=== PATIENT | female | born 1995 | race Caucasian/White ===

== ENCOUNTER → 2017-05-15 10:41 | Outpatient (CLI) | payer OTHER, SELFPAY ==
[2017-05-15 14:48] LABS: Group B Strep DNA By PCR Negative (Negative); Internal Control PASS; Probe Check PASS; Specimen Processing Control PASS
== END ==
PROVIDERS: Visit Provider Obstetrics & Gynecology
DX: Z36.85 Encounter for antenatal screening for Streptococcus B (principal)
CPT/HCPCS: 87081; 87653

== ENCOUNTER 2017-06-10 05:30 | Inpatient (IN) | payer OTHER, SELFPAY ==
[2017-06-10 03:00] VITALS: BMI 35.1
[2017-06-10] MEDS: Lactated Ringers 1,000 ML 50 ML IV (06:00)
[2017-06-10 06:31] LABS: Hematocrit 39.4 % (37-47); Hemoglobin 13.2 g/dl (12.0-15.0); Mean Corp Hgb Conc 33.5 g/gl (32-36); Mean Corpuscular Hgb 28.4 pg (27.0-32.0); Mean Corpuscular Volume 84.7 fL (81-99); Mean Platelet Vol. 11.3 fl (6.2-12.0); Platelet Count 179 K/mm3 (150-450); RBC Distribution Width CV 13.1 % (11.6-14.6); RBC Distribution Width SD 39.7 fl (35.1-43.9); Red Blood Count 4.65 M/mm3 (4.2-5.4); White Blood Count 24.8 K/mm3 (4.4-11.0)
[2017-06-10 06:32] LABS: Scan Indicated on CBC? Y/N NO
--- NOTE | 2017-06-10 08:21 | PCM.PN.BLA ---
Progress Note LABOR PROGRESS NOTE plan and has declined cervix checks and AROM . Stated to RN that she is having rectal pressure and requesting cervix check now. Discussed AROM AVSS CX: /-2 BBOW. AROM Light mec EFM 130-140s avg variability accels. Periods of FHR in 150s Category I tracing UCs irreg with coupling and spacing, q 2-5 mins. A/P: Term IUP labor. in active phase now. Continue labor after AROM. Declines epidural
[2017-06-10] MEDS: Oxytocin 10 UNITS/ML Vial IM (09:43)
[2017-06-10] MEDS: Acetaminophen 500 MG Tablet 1000 MG PO ×2 (12:35→22:33)
[2017-06-10 16:30] VITALS: BP 117/69; PULSE 94; RESP 18; TEMP 36.7
[2017-06-10] MEDS: Ibuprofen 600 MG Tablet PO (19:37)
[2017-06-10 22:00] VITALS: BP 121/64; PULSE 102; RESP 16; TEMP 36.6
[2017-06-11 02:00] VITALS: PULSE 99; RESP 18
[2017-06-11] MEDS: Ibuprofen 600 MG Tablet PO ×2 (04:33→17:57)
--- NOTE | 2017-06-11 05:13 | PCM.DCVAG ---
Discharge Diet: No Restrictions Discharge Activity: May Shower, May Take a Tub Bath May resume sexual activity in: 4-6 weeks Additional Activity Instructions:: Nothing in the vagina for 4-6 weeks. You may return to work/school in 6 weeks. Additional Instructions: If you experience any of the following, contact your healthcare provider. Bleeding that soaks a pad every hour for 2 hours Fever 100.4 or higher Unrelieved abdominal pain Problems urinating (including inability to urinate or burning while urinating). Visual changes Severe headache Flu-like symptoms Pain or redness in one of both of your breasts Pain, warmth, tenderness or swelling in your legs, especially the calf area Frequent nausea and vomiting Symptoms of depression or anxiety If you experience any of the following, call 911 or go to the nearest Emergency Room. Chest pain Problems breathing Seizure activity Partial or complete paralysis of a body part, slurred speech, weakness or drooping of the face, or a sudden inability to walk or hold your balance Allergies/Adverse Reactions: Allergies No Known Allergies Allergy (Verified 06/10/17 03:02) Medications to take at Discharge Prenatabs FA 1 tab PO DAILY 06/10/17 Orders to be completed after discharge: Electric breast pump Time Frame: 1 Year, Location: None Selected Please Follow Up With: Ingris Camp MD - [phone] When: Call to make an appointment with your doctor in 6 weeks. Primary Care Physician: Care Physician,No Primary [Primary Care Provider] - Proposed Discharge Date: 06/12/17
--- NOTE | 2017-06-11 05:15 | DCINST_ITS ---
Discharge Diet: No Restrictions Discharge Activity: May Shower, May Take a Tub Bath May resume sexual activity in: 4-6 weeks Additional Activity Instructions:: Nothing in the vagina for 4-6 weeks. You may return to work/school in 6 weeks. Additional Instructions: If you experience any of the following, contact your healthcare provider. * Bleeding that soaks a pad every hour for 2 hours * Fever 100.4 or higher * Unrelieved abdominal pain * Problems urinating (including inability to urinate or burning while urinating) . * Visual changes * Severe headache * Flu-like symptoms * Pain or redness in one of both of your breasts * Pain, warmth, tenderness or swelling in your legs, especially the calf area * Frequent nausea and vomiting * Symptoms of depression or anxiety If you experience any of the following, call 911 or go to the nearest Emergency Room. * Chest pain * Problems breathing * Seizure activity * Partial or complete paralysis of a body part, slurred speech, weakness or drooping of the face, or a sudden inability to walk or hold your balance Allergies/Adverse Reactions: Allergies No Known Allergies Allergy (Verified 06/10/17 03:02) Medications to take at Discharge Prenatabs FA 1 tab PO DAILY 06/10/17 Orders to be completed after discharge: Electric breast pump Time Frame: 1 Year, Location: None Selected Please Follow Up With: Ingris Camp MD - [phone] When: Call to make an appointment with your doctor in 6 weeks. Primary Care Physician: Care Physician,No Primary [Primary Care Provider] - Proposed Discharge Date: 06/12/17
--- NOTE | 2017-06-11 05:17 | PCM.OB.VAG ---
Vaginal Delivery Maternal Presentation: Active Labor 39 4/7 wk presents in labor, IBOW Amniotic Membrane Rupture Type: Artificial Amniotic Fluid Description: Lightly stained meconium Final ARIANA: 06/13/17 Gestational age: 39 Weeks and 4 Days doctor who attended delivery (if requested by OB): Meghan Watters Date of Procedure: 06/10/17 Pre-Operative Diagnosis: 39 4/7 wk labor Post-Operative Diagnosis: 39 4/7 wk labor, delivered Surgery/ Procedure Performed: Spontaneous Vaginal Delivery Type of Anesthesia: None - nitrous oxide Description of Procedure: of a jackson viable female over intact perineum to laceration. Head delivered MARY. No nuchal cord. Shoulders delivered easily. Baby delivered onto bed, then bulb suctioned as began to cry. Meconium stained fluid noted at amniotomy and Dr. Watters and Respiratory Therapist present for delivery. Infant to maternal abdomen for drying, stimulation then. Routine venous cord gas obtained. PP exam: 2nd deg vaginal laceration at introitus to L side, bleeding. Avulsion laceration at L anterior labia majora (hemostatic). 1% lidocaine local infused at location to be repaired. Laceration repaired to hemostatic, intact with 3-0 vicryl. no other repair. Placenta delivered by spont expulsion. ring forceps used to tease trailing membranes from vagina. Pt and tolerated delivery well. to recovery. stable [employer] counts correct x two. Presentation: Vertex, MARY Placental Delivery Description: Spontaneous Placenta Disposition: [facility] Cord Vessel Description: 3 Vessels Cord Gases drawn per routine: VBG Cord Entanglement: None Estimated Blood Loss: 350 Infant A gender: Female (1 minute): 8 (5 minute): 9 Episiotomy Description: None Laceration: Midline, Vaginal Extension/lac, 2nd degree Medications given after delivery: - - IM pitocin 10 U x one. (IV infiltrated / site lost ) Complications: None
[2017-06-11 08:10] VITALS: BP 111/53; PULSE 74
--- NOTE | 2017-06-11 08:11 | PCM.PN.OB ---
Subjective: PPD#1 Doing well. Minimal pain. breast feeding. Baby 8# 6 oz no concerns voiced. Tired and hoping to rest/nap more today. - Physical Exam General: Alert, Oriented x3, Cooperative, No apparent distress HEENT: Atraumatic Neck: Supple Abdomen: Soft - Fundus firm NT at 1-2 cm inferior to umbilicus Neurological: Cranial nerves II-XII grossly intact Psych/Mental Status: Normal Affect Vital Signs Temp Pulse Resp BP 97.8 F 99 18 121/64 H 06/10/17 22:00 06/11/17 02:00 06/11/17 02:00 06/10/17 22:00 Oxygen Delivery Method Room Air Weight: 84.368 kg Body Mass Index (BMI) 35.1 Intake and Output for Last 24 Hours 06/09/17 06/10/17 06/11/17 23:59 23:59 23:59 Intake Total 1000 / 1000 Output Total 1100 / 1100 Balance -100 / -100 Assessment/Plan PPD#1 Stable pp. Continue care, anticipate D/C home tomorrow.
[2017-06-11 08:20] VITALS: RESP 16; TEMP 36.4; O2SAT 97
[2017-06-11] MEDS: Prenatal Vits Tablet 1 TABLET PO (09:53)
[2017-06-11] MEDS: Acetaminophen 500 MG Tablet 1000 MG PO (13:31)
[2017-06-11 14:45] VITALS: BP 120/77; PULSE 88; RESP 16; TEMP 36.5; O2SAT 97
[2017-06-11 19:31] VITALS: BP 108/53; PULSE 77; RESP 16; TEMP 36.9
[2017-06-12] MEDS: Acetaminophen 500 MG Tablet 1000 MG PO ×2 (01:12→11:40)
[2017-06-12 02:10] VITALS: BP 109/59; PULSE 88; RESP 18; TEMP 36.1
--- NOTE | 2017-06-12 08:15 | PCM.PN.OB ---
Subjective: PPD#2 doing well. - Physical Exam General: Oriented x3 - resting, Cooperative, No apparent distress HEENT: Atraumatic Neck: Supple Abdomen: Soft - Fundus firm NT at approx umbilicus -1 cm. Off to R side Psych/Mental Status: Normal Affect Vital Signs Temp Pulse Resp BP Pulse Ox 96.9 F L 88 18 109/59 L 97 06/12/17 02:10 06/12/17 02:10 06/12/17 02:10 06/12/17 02:10 06/11/17 14:45 Oxygen Delivery Method Room Air Weight: 84.368 kg Body Mass Index (BMI) 35.1 Intake and Output for Last 24 Hours 06/10/17 06/11/17 06/12/17 23:59 23:59 23:59 Intake Total 1000 / 1000 Output Total 1100 / 1100 Balance -100 / -100 Assessment/Plan PPD#2 Stable pp. D/C home
[2017-06-12 08:16] VITALS: BP 105/55; PULSE 71; RESP 16; TEMP 36.3
[2017-06-12] MEDS: Prenatal Vits Tablet 1 TABLET PO (11:39)
[2017-06-12 14:00] VITALS: BP 105/58; PULSE 90; RESP 16; TEMP 36.8
== END 2017-06-12 14:00 | disposition home or self-care (01) | DRG 775 ==
LOC: WPOUT 05:41
PROVIDERS: Admitting Provider Obstetrics & Gynecology; Family Provider Family Medicine; PCP Family Medicine; Visit Provider Obstetrics & Gynecology
DX: O77.0 Labor and delivery complicated by meconium in amniotic fluid (principal); O70.1 Second degree perineal laceration during delivery; Z37.0 Single live birth; Z3A.39 39 weeks gestation of pregnancy
CPT/HCPCS: 59025; 59050; 85027; 86850; 86900; 99218; J7120; G0378

== ENCOUNTER 2017-06-16 13:00 | Outpatient (CLI) | payer OTHER, SELFPAY | END 2017-06-16 14:00 | disposition home or self-care (01) | LOC: WPOUT 13:09 → WP 13:09 | PROVIDERS: Family Provider Family Medicine; PCP Family Medicine; Visit Provider Obstetrics & Gynecology | DX: R63.3 Feeding difficulties (principal) | CPT/HCPCS: 96152 ==

== ENCOUNTER 2017-07-13 22:02 | Emergency (ER) | payer OTHER, SELFPAY ==
[2017-07-13 22:03] VITALS: BP 118/75; PULSE 120; RESP 24; TEMP 36.6; O2SAT 98; BMI 29.5
--- NOTE | 2017-07-13 22:21 | NURSING ---
[facility] LUBRICATOR CALLED FOR EKG, NO OLD EKG'S IN MUSE
--- NOTE | 2017-07-13 23:15 | ED.VISSUMM ---
- ER Visit Summary Date of Service: 07/13/17 Chief Complaint: [] Left inner back pain History of Present Illness: The patient is a 22 F patient having left-sided and her thoracic back pain since yesterday. She woke with it it is a continuous sharp nerve pain that radiates up into her neck. Current severity is moderate. Worsened by nothing. Relieved by nothing. She got a massage today and she thinks that made it worse. She denies any other associated symptoms. She does not have any shortness of breath but the pain sometimes takes her breath away. Waxes and wanes. She had this pain 2 weeks ago for 3 days and it went away with stretching and resting. She has been using Tylenol with her last dose at 6 PM. She is breast-feeding. She had a vaginal delivery at the end of May without complications. Denies any other PE risk factors. Physical Examination: Vital signs reviewed General: Well-nourished well-developed Head: Normocephalic atraumatic Eyes: Pupils equal round and reactive to light extraocular movements intact ENT: TMs clear no hemotympanum no trauma Neck: Nontender full range of motion Cardiovascular: Regular rate rhythm no murmurs normal S1-S2 Respiratory: No distress clear to auscultation bilaterally chest nontender Abdomen: Soft nontender nondistended normal bowel sounds no masses Back: Redness and midthoracic left paraspinals just medial to the scapula. No swelling or deformity. No CVA tenderness Extremities: Nontender active range of motion ?4 extremities no trauma Skin: Normal color no trauma Neuro alert oriented cranial nerves II through XII intact normal strength sensation reflexes Test Results: [] Emergency Department Course and Treatment: [] EKG shows sinus rhythm at 121 without ischemia. The patient's pulse ox is 98%. She does have a tachycardia but she feels it is from the pain. I discussed doing lab work and imaging and PE rule out with her and she declined. At this time this is very much reproducible musculoskeletal back pain. She is given a shot of Toradol and morphine and will rest and ice and do gentle stretching and try not to lift too much. I do not feel she needs other imaging. I Have a low suspicion for acute coronary syndrome. PEs in the differential but I still have a low suspicion. Treatment Plan: [] Disposition: [] Impression: [] Left-sided thoracic back pain This note was generated with Dragon dictation software. It may contain incorrect words, spelling, and punctuation that were not noted in review of the chart prior to signing ED Disposition - Plan for ED Patient: Chief Complaint: Shortness of Breath Referrals: Sendy Ferraro DO [Primary Care Provider] -
--- NOTE | 2017-07-13 23:20 | ED.DEP ---
ED Disposition - Plan for ED Patient: Disposition: Home or Assisted Living Chief Complaint: Shortness of Breath Instructions: Relieving Back Pain Prescriptions: Oxycodone HCl/Acetaminophen [Percocet 5/325] 1 tab PO Q6H PRN PRN 3 Days #12 tab PRN Reason: Pain Referrals: Sendy Ferraro DO [Primary Care Provider] -
[2017-07-13] MEDS: Ketorolac 60 MG/2 ML Vial IM (23:24)
[2017-07-13] MEDS: Morphine 4 MG/ML Syringe IM (23:24)
[2017-07-14 00:07] VITALS: BP 113/73; PULSE 95; RESP 18; O2SAT 97
== END 2017-07-14 00:08 | disposition home or self-care (01) ==
LOC: ED 23:30
PROVIDERS: Emergency Provider Emergency Medicine; Family Provider Family Medicine; PCP Family Medicine
DX: M54.6 Pain in thoracic spine (principal); R00.0 Tachycardia, unspecified
CPT/HCPCS: 96372; 99282

== ENCOUNTER 2017-07-15 00:06 | Emergency (ER) | payer OTHER, SELFPAY ==
[2017-07-15 00:07] VITALS: BP 146/51; PULSE 124; RESP 24; TEMP 37.7; O2SAT 99; BMI 30.2
--- NOTE | 2017-07-15 00:19 | EKG12_ITS ---
Test Reason : Blood Pressure : / mmHG Vent. Rate : 121 BPM Atrial Rate : 121 BPM P-R Int : 142 ms QRS Dur : 076 ms QT Int : 316 ms P-R-T Axes : 027 042 -03 degrees QTc Int : 448 ms Sinus tachycardia Nonspecific ST abnormality Abnormal ECG Confirmed by DELILAH RODRIGUEZ, JUANIS ([id number]), school photograph editor DIANA CERNA ([id number]) on 07/17/2017 1:00:03 PM Referred By: Ingris Camp Confirmed By:JUANIS MAZARIEGOS MD
--- NOTE | 2017-07-15 00:20 | CT_ITS ---
STUDY: CTA CHEST REASON FOR EXAM: Female, 22 years old. Left-sided thoracic back pain x2 days, shortness of breath today RADIATION DOSAGE (If Supplied By Facility): CTDIvol = ( 8.53 ) mGy, DLP = ( 449.71 ) mGycm TECHNIQUE: The examination was performed with the intravenous administration of 75 ml of Isovue 370 contrast material. Post-processing of the angiographic images was performed, with multiplanar reformation and 3D reconstruction. Individualized dose optimization techniques were used for this CT. COMPARISON: None. FINDINGS: Normal enhancement of the main pulmonary artery and right and left pulmonary arteries. Normal enhancement of the bilateral peripheral pulmonary arteries. There is no demonstrated pulmonary embolism. Normal thoracic aorta and visualized great vessels. There is no demonstrated aortic dissection. Normal heart . Mild pericardial thickening with fat stranding. Asymmetry of the anterior chest wall, more pronounced along the left pectoral muscle. An inflammatory process is not excluded. Normal mediastinum. Normal hilar regions. Normal visualized trachea and bronchi. The lungs are under expanded. There are atelectatic changes and pleural thickening along the basilar right middle and lower lobe. Small left pleural effusion. Adjacent mild compression of parenchyma and a possible mild acute airspace disease.. Normal chest wall structures. Normal osseous structures. Normal visualized upper abdomen. CT/CTA Chest W/WO Contrast IMPRESSION: No demonstrated pulmonary embolism, aneurysm, leak or arterial dissection. Small left pleural effusion. Bibasilar atelectasis, questionable mild airspace disease in the left lower lobe. Pericardial thickening. This may be an inflammatory process. Correlation advised. Asymmetry of the pectoral musculature, more pronounced left, somewhat indistinct, inflammatory process is not excluded. No abscess or collection detected. Electronically Signed: Dee Pink MD at 2:05 EDT , Service support ,
--- NOTE | 2017-07-15 00:23 | NURSING ---
NO OLD EKG'S IN MUSE
[2017-07-15] MEDS: Ketorolac 30 MG/ML Syringe IV (00:34)
[2017-07-15] MEDS: 0.9% Normal Saline 1,000 ML 1000 ML IV (00:34)
[2017-07-15] MEDS: Morphine 4 MG/ML Syringe 8 MG IV (00:38)
[2017-07-15 00:43] LABS: Absolute Lymphocyte Count 1.38 X10^3/ul (0.83-4.51); Absolute Neutrophil Count 11.5 X10^3/uL (2.0-7.7); Basophil# 0.01 X10^3/uL; Basophil% 0.1 % (0-1); Eosinophil# 0.08 X10^3/uL; Eosinophils% 0.5 % (0-5); Hematocrit 40.9 % (37-47); Hemoglobin 13.3 g/dl (12.0-15.0); Lymphocyte # 1.38 X10^3/ul (4.0); Lymphocyte % 9.4 % (19-41); Mean Corp Hgb Conc 32.5 g/gl (32-36); Mean Corpuscular Hgb 27.5 pg (27.0-32.0); Mean Corpuscular Volume 84.7 fL (81-99); Mean Platelet Vol. 9.6 fl (6.2-12.0); Monocyte% 12.2 % (0-10); Neutrophil # 11.45 X10^3/uL (2.7-7.7); Neutrophil % 77.7 % (47-70); Platelet Count 246 K/mm3 (150-450); RBC Distribution Width CV 14.1 % (11.6-14.6); RBC Distribution Width SD 43.9 fl (35.1-43.9); Red Blood Count 4.83 M/mm3 (4.2-5.4); White Blood Count 14.7 K/mm3 (4.4-11.0)
[2017-07-15 00:44] LABS: Differential Indicated SCAN CRITERIA MET; POSITIVE COUNT NO; POSITIVE DIFFERENTIAL YES; POSITIVE MORPHOLOGY YES
[2017-07-15 00:50] VITALS: O2SAT 100
[2017-07-15 00:52] LABS: Anion Gap 8 (5-15); BUN 21 mg/dL (7-18); BUN/Creat Ratio 19.4 RATIO (10-20); Calcium,Total 8.6 mg/dL (8.5-10.1); Chloride 104 mmol/L (98-107); Creatinine, Serum 1.08 mg/dL (0.55-1.02); EST Glomerular Filtration Rate 68 mL/min (>60); Est Glom Filt Rate - Afr Amer 82 mL/min (>60); Estimated Creatinine Clearance 62.18 ml/min; Glucose 93 mg/dL (74-106); Potassium 3.9 mmol/L (3.5-5.1); Sodium Level 138 mmol/L (136-145)
[2017-07-15] MEDS: HYDROmorphone 1 MG/ML Syringe IV (01:15)
[2017-07-15 02:12] VITALS: BP 115/68; PULSE 100; RESP 18; O2SAT 99
--- NOTE | 2017-07-15 02:16 | ED.VISSUMM ---
- ER Visit Summary Date of Service: 07/15/17 Chief Complaint: [] Back pain History of Present Illness: The patient is a 22 F complaining of back pain and shortness of breath from the pain. It hurts when she takes a deep breath. No cough. No fevers or chest pain. She was seen by myself yesterday and given Toradol morphine with moderate relief of her symptoms. She did not take Percocet as she is breast-feeding. She had vaginal delivery at the end of May without problems. Physical Examination: Vital signs reviewed General: Well-nourished well-developed Head: Normocephalic atraumatic Eyes: Pupils equal round and reactive to light extraocular movements intact ENT: TMs clear no hemotympanum no trauma Neck: Nontender full range of motion Cardiovascular: Regular cardia with normal no murmurs normal S1-S2 Respiratory: No distress clear to auscultation bilaterally chest nontender Abdomen: Soft nontender nondistended normal bowel sounds no masses Back: Tenderness between her left scapula and spinal midthoracic no CVA tenderness Extremities: Nontender active range of motion ?4 extremities no trauma Skin: Normal color no trauma Neuro alert oriented cranial nerves II through XII intact normal strength sensation reflexes Test Results: [] CBC normal except white count of 14.7. Chemistries normal except BUN 21. Troponin negative. EKG shows sinus at a rate of [address] of the chest shows no PE. Positive left lower lobe pneumonia with pleural effusion. Patient given IV fluids, morphine, Dilaudid, Toradol with complete resolution of pain. Given levofloxacin. At this time I feel she can be discharged with levofloxacin. She has Percocet at home. She is going to take this. She will follow-up as an outpatient. I do not feel she needs admitted. Emergency Department Course and Treatment: [] Treatment Plan: [] Disposition: [] Impression: [] Left lower lobe pneumonia with back pain Left lower pleural effusion secondary to pneumonia This note was generated with All[employer] dictation software. It may contain incorrect words, spelling, and punctuation that were not noted in review of the chart prior to signing ED Disposition - Plan for ED Patient: Chief Complaint: Back Referrals: Sendy Ferraro DO [Primary Care Provider] -
[2017-07-15 02:56] VITALS: BP 115/68; PULSE 92; RESP 21; O2SAT 97
[2017-07-15] MEDS: HYDROcodone Bitartrate/Apap 5/325 Tablet PO (04:09)
== END 2017-07-15 04:10 | disposition home or self-care (01) ==
PROVIDERS: Emergency Provider Emergency Medicine; Family Provider Family Medicine; PCP Family Medicine
DX: J18.1 Lobar pneumonia, unspecified organism (principal); M54.9 Dorsalgia, unspecified; J90 Pleural effusion, not elsewhere classified
CPT/HCPCS: 71275; 80048; 84484; 85025; 93005; 96361; 96365; 96366; 96374; 96375; 99284; J7030; Q9967; A4216

== ENCOUNTER 2017-07-17 21:34 | Inpatient (IN) | payer OTHER, SELFPAY ==
[2017-07-17 21:36] VITALS: BP 137/57; PULSE 125; RESP 20; TEMP 37.1; O2SAT 96; BMI 31.8
[2017-07-17 21:50] VITALS: BP 116/80; PULSE 111; RESP 22; O2SAT 97
[2017-07-17 21:51] VITALS: O2SAT 98
--- NOTE | 2017-07-17 22:00 | ED.VISSUMM ---
- ER Visit Summary Date of Service: 07/17/17 Chief Complaint: Fever, body aches, headache History of Present Illness: The patient is a 22 F seen in the ER twice this week with back pain. Patient was diagnosed with left lower lobe pneumonia and a pleural effusion on a CTA of the chest on the fourth. Patient is currently on Levaquin. Patient reports fever to 101 tonight with body aches and headache, the improved after taking a nap. Mom is with the patient stating she was not sure if this was still normal with pneumonia. Mom also states that her lips look purple when she got up from a nap. Physical Examination: Blood pressure is 137/57, temperature 98.8, heart rate 125, respiratory rate 20, pulse ox 96% on room air. Patient sitting upright in bed no acute distress. She speaking full sentences. Heart is tachycardic and regular. Lung sounds are slightly diminished left base. Overall good air movement throughout. There is no wheezing appreciated. Abdomen is soft nontender. Back examination was mild tenderness in the left thoracic paraspinal muscles. No overlying skin changes are noted. Test Results: Two-view chest x-ray reveals lower lung airspace disease. Bilateral effusions are present. Mild cardiomegaly. CBC was normal white count with hemoglobin 11.5. She is 78% neutrophils. Chemistry studies are significant only for glucose of 110. Lactate is normal. Blood cultures were drawn. Emergency Department Course and Treatment: While we are waiting laboratory evaluation, I did further review the workup from 2 days ago. The report for the CTA chest does comment on a small possible acute airspace disease in the left base with left pleural effusion. They also commented that the pericardial sac was thickened and had stranding. In light of this, EKG is obtained tonight and reveals sinus rhythm at 78 bpm. T-wave in V1, V2, and V3 are flipped when compared to prior study from July 15. Troponin is less than 0.02. BNP is 58. Her sed rate is 32 and CRP is 131. Patient was discussed Dr. Guerrero and hospitalist. Patient will be admitted for further treatment and echocardiogram. Treatment Plan: [] Disposition: Admit Impression: 1. Pneumonia 2. Bilateral pleural effusions 3. Pericardial thickening This note was generated with TrialReachation software. It may contain incorrect words, spelling, and punctuation that were not noted in review of the chart prior to signing ED Disposition - Plan for ED Patient: Chief Complaint: Fever Referrals: Sendy Ferraro DO [Primary Care Provider] -
--- NOTE | 2017-07-17 22:11 | RAD_ITS ---
STUDY: X-RAY CHEST REASON FOR EXAM: Female, 22 years old. Fever TECHNIQUE: Frontal and lateral views of the chest. COMPARISON: None. FINDINGS: The lungs are expanded. Lower lung opacities. Small effusions. There is no demonstrated pleural abnormality. There is mild cardiac enlargement. Normal mediastinum and tk. Normal visualized pulmonary arteries. Normal visualized aortic arch and descending thoracic aorta. Normal visualized thoracic spine. Normal visualized ribs, clavicles, and shoulders. There is no demonstrated abnormality of the visualized soft tissue structures of the upper abdomen. RAD/Chest PA and Lateral IMPRESSION: Lower lung airspace disease. Bilateral effusion. Mild cardiomegaly. Electronically Signed: Jose Reed DO at 22:56 EDT , Service support ,
[2017-07-17 22:20] VITALS: TEMP 36.9
[2017-07-17 22:20] LABS: Absolute Lymphocyte Count 0.99 X10^3/ul (0.83-4.51); Absolute Neutrophil Count 8.3 X10^3/uL (2.0-7.7); Basophil# 0.02 X10^3/uL; Basophil% 0.2 % (0-1); Eosinophil# 0.22 X10^3/uL; Eosinophils% 2.1 % (0-5); Hematocrit 35.8 % (37-47); Hemoglobin 11.5 g/dl (12.0-15.0); Lymphocyte # 0.99 X10^3/ul (4.0); Lymphocyte % 9.4 % (19-41); Mean Corp Hgb Conc 32.1 g/gl (32-36); Mean Corpuscular Hgb 27.3 pg (27.0-32.0); Mean Corpuscular Volume 84.8 fL (81-99); Mean Platelet Vol. 9.6 fl (6.2-12.0); Monocyte# 1.02 X10^3/uL; Monocyte% 9.7 % (0-10); Neutrophil # 8.25 X10^3/uL (2.7-7.7); Neutrophil % 78.4 % (47-70); Platelet Count 262 K/mm3 (150-450); RBC Distribution Width CV 14.1 % (11.6-14.6); Red Blood Count 4.22 M/mm3 (4.2-5.4); White Blood Count 10.5 K/mm3 (4.4-11.0)
[2017-07-17 22:21] LABS: POSITIVE COUNT NO; POSITIVE DIFFERENTIAL NO; POSITIVE MORPHOLOGY NO
[2017-07-17] MEDS: 0.9% Normal Saline 1,000 ML 150 ML IV (22:33)
[2017-07-17 22:44] LABS: Anion Gap 9 (5-15); BUN 14 mg/dL (7-18); BUN/Creat Ratio 12.7 RATIO (10-20); Calcium,Total 8.4 mg/dL (8.5-10.1); Chloride 104 mmol/L (98-107); EST Glomerular Filtration Rate 66 mL/min (>60); Est Glom Filt Rate - Afr Amer 80 mL/min (>60); Estimated Creatinine Clearance 61.05 ml/min; Glucose 115 mg/dL (74-106); Potassium 3.7 mmol/L (3.5-5.1); Sodium Level 142 mmol/L (136-145)
[2017-07-17 23:19] VITALS: BP 111/74; PULSE 94; RESP 20; O2SAT 98
--- NOTE | 2017-07-17 23:26 | EKG12_ITS ---
Test Reason : Blood Pressure : / mmHG Vent. Rate : 120 BPM Atrial Rate : 120 BPM P-R Int : 148 ms QRS Dur : 068 ms QT Int : 312 ms P-R-T Axes : 035 041 017 degrees QTc Int : 440 ms Sinus tachycardia Otherwise normal ECG Confirmed by DELILAH RODRIGUEZ, JUANIS ([id number]), visual effects editor DIANA CERNA ([id number]) on 07/20/2017 3:44:31 PM Referred By: Ingris Camp Confirmed By:JUANIS MAZARIEGOS MD
--- NOTE | 2017-07-17 23:37 | EKG12_ITS ---
Test Reason : FEVER Blood Pressure : / mmHG Vent. Rate : 078 BPM Atrial Rate : 078 BPM P-R Int : 176 ms QRS Dur : 080 ms QT Int : 386 ms P-R-T Axes : 019 016 -01 degrees QTc Int : 440 ms Normal sinus rhythm Normal ECG Confirmed by DELILAH RODRIGUEZ, JUANIS ([id number]), primer expeditor and drier DIANA CERNA ([id number]) on 07/21/2017 8:46:39 AM Referred By: Ingris Camp Confirmed By:JUANIS MAZARIEGOS MD
[2017-07-18] VITALS (16 sets, daily range): BP systolic 98–150; BP diastolic 56–104; PULSE 64–98; RESP 16–24; TEMP 36.6–37; O2SAT 95–99; BMI 31.1
[2017-07-18 00:01] LABS: Erythrocyte Sedimentation Rate 32 mm/hr (0-20)
[2017-07-18 00:34] LABS: BNP,B-Type NATRIURETIC PEPTIDE 58.8 pg/mL (0-100)
--- NOTE | 2017-07-18 01:18 | PCM.HP.STD ---
Problem List (1) Acute myocarditis Status: Suspected (2) cardiomyopathy Status: Suspected (3) Bilateral pleural effusion Status: Acute (4) Acute CHF Status: Acute History of Present Illness Date of Admission: 07/18/17 Chief Complaint: Fever, headache, shortness of breath and left shoulder pain. The patient is a 22 year old F with no significant past medical history presented to the emergency room because of multiple symptoms including fever, headache and shortness of breath as well as left shoulder pain. She is 5 weeks , delivered a baby on June 09, 2018. After delivery, she stated that she was about back to her baseline health status. 2 weeks , she started having left shoulder pain, it is on the medial aspect of the left shoulder blade, sharp and sometimes dull aching pain, 5-6 out of 10 in severity, intermittent, aggravated by taking a deep breath, no relieving factors and that pain continued for almost 2 weeks. 6 days ago, she started having exertional shortness of breath and she continues to have intermittent left shoulder blade pain, associated with orthopnea, no PND and she has been having intermittent fever. For this left shoulder blade few days ago, she went to urgent care for this left shoulder blade pain and she was reassured and she was discharged home. She came to the emergency department on July 13, 2012 for the same symptoms and she was discharged home on Percocet as needed for pain. She came back 2 days later without improvement of her symptoms. At that time, CTA chest done and revealed questionable left lower lobe infiltrate and she was started on Levaquin. That CTA chest showed no evidence of PE or dissection. The patient has been on Levaquin for 3 days and she mentioned she still having this pain at the left shoulder blade as well as shortness of breath on exertion and orthopnea. Today, she has spiked a fever at home of 101. She denied sore throat, nasal or sinus congestion. She denied cough or sputum production. She denied abdominal pain, nausea vomiting. She denies urinary symptoms. She denied constipation or diarrhea. In the emergency room, she was tachycardic, afebrile, blood pressure was stable and she was tachypneic with pulse ox of 97% on 2 L. Her routine blood work was remarkable for hemoglobin of 11.5 g/dL, otherwise normal. Her troponin was negative. BNP was normal. CRP and ESR were elevated. Chest x-ray revealed cardiomegaly and small bilateral pleural effusion. He is being admitted for bilateral pleural effusion and mild acute CHF probably systolic which could be due to cardiomyopathy versus myocarditis as well as probable pneumonia. 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 Denies: Anorexia, Chills Eyes: Denies: Blurred vision, Double vision, Drainage, Redness HEENT: Reports: Head Aches. Denies: Difficulty Hearing, Ear Pain, Eye Pain, Nasal bleeding, Nasal Congestion, Sore Throat Cardiovascular: Reports: Orthopnea. Denies: Chest Pain, Chest Tightness, Heaviness, Light Headedness, Paroxysmal Noc. Dyspnea, Syncope Respiratory: Reports: Pleuritic Pain, Shortness of breath upon exertion. Denies: Cough, Hemoptysis, Sputum production, Wheezing Gastrointestinal: Reports: Nausea. Denies: Abdominal Pain, Constipation, Diarrhea, Vomiting Genitourinary: Denies: Dysuria, Frequency, Hematuria Musculoskeletal: Reports: Shoulder Pain. Denies: Arm Pain, Back Pain, Foot Pain Skin: Denies: Dryness, Rash Neurological: Reports: Headaches. Denies: Balance problems, Double vision, Change in Speech, Slurred speech, Confusion, Difficulty swallowing, Numbness, Tingling Psychiatric: Denies: Anxiety, Depression Endocrine: Denies: Change in Body Habitus, Polydipsia VTE Information - Inpt Only VTE Present on Admission: No VTE Mechan Device Prophylaxis: None VTE Pharm Prophylaxis ordered?: No Patient Problems: Active and Suspected Problems Acute myocarditis (Suspected) cardiomyopathy (Suspected) Bilateral pleural effusion (Acute) Acute CHF (Acute) - Physical Exam General: Alert, Oriented x3, Cooperative, - - Minimal shortness of breath. HEENT: Atraumatic, PERRLA, EOMI Oral: Moist Mucosa, No Gingival or Mucosal Lesions/ Ulcerations Neck: Supple, No JVD, Negative Carotid Bruits, Trachea Midline, Thyroid Normal Size and Texture Lungs: No rhonchi, No wheeze, No rales, Diminished, Short of Breath, - - Markedly decreased breath sounds at the bases, otherwise clear. Cardiovascular: Regular rate, Regular Rhythm, Normal S1, Normal S2, No murmurs, PMI Normal Abdomen: Bowel Sounds Present, Soft, Non Tender, Non-Distended, No Hepato-splenomegaly Extremities: No clubbing, No cyanosis, No edema Skin: No rashes, No breakdown Lymphatic: No Cervical, Supraclavicular, or Inguinal Adenopathy Neurological: Cranial nerves II-XII grossly intact, Motor Exam 5/5 strength throughout Psych/Mental Status: Normal Affect, Appropriate, Alert and oriented to time, place, person, mood and affect Vital Signs Temp Pulse Resp BP Pulse Ox 98.5 F 75 24 H 113/84 H 99 07/18/17 00:08 07/18/17 00:08 07/18/17 00:08 07/18/17 00:08 07/18/17 00:08 Oxygen Flow Rate (L/min) 2 Oxygen Delivery Method Nasal Cannula Weight: 168 lb 3.403 oz Body Mass Index (BMI) 31.8 Laboratory Tests Past 24 Hrs 07/17/17 07/17/17 07/17/17 22:05 22:05 22:05 WBC 10.5 RBC 4.22 Hgb 11.5 L Hct 35.8 L MCV 84.8 MCH 27.3 MCHC 32.1 RDW 14.1 RDW Differential 44.0 H Plt Count 262 MPV 9.6 Immature Gran % (Auto) 0.200 Neut % (Auto) 78.4 H Lymph % (Auto) 9.4 L [place] % (Auto) 9.7 Eos % (Auto) 2.1 Baso % (Auto) 0.2 Absolute Neuts (auto) 8.3 H Absolute Lymphs (auto) 0.99 Total Counted Not Reportable ESR Sodium 142 Potassium 3.7 Chloride 104 Carbon Dioxide 29.0 Anion Gap 9 BUN 14 Creatinine 1.10 H Estim Creat Clear Calc 61.05 Est GFR (MDRD) Af Amer 80 Est GFR (MDRD) Non-Af 66 BUN/Creatinine Ratio 12.7 Glucose 115 H Lactic Acid 1.0 Calcium 8.4 L Troponin I C-React Prot Ext Range B-Natriuretic Peptide 07/17/17 07/17/17 07/17/17 22:05 22:05 22:05 WBC RBC Hgb Hct MCV MCH MCHC RDW RDW Differential Plt Count MPV Immature Gran % (Auto) Neut % (Auto) Lymph % (Auto) [place] % (Auto) Eos % (Auto) Baso % (Auto) Absolute Neuts (auto) Absolute Lymphs (auto) Total Counted ESR 32 H Sodium Potassium Chloride Carbon Dioxide Anion Gap BUN Creatinine Estim Creat Clear Calc Est GFR (MDRD) Af Amer Est GFR (MDRD) Non-Af BUN/Creatinine Ratio Glucose Lactic Acid Calcium Troponin I < 0.02 C-React Prot Ext Range 131.00 H B-Natriuretic Peptide 58.8 Clinical Impression(s) from Imaging Studies Chest X-Ray 07/17/17 22:11 IMPRESSION: Lower lung airspace disease. Bilateral effusion. Mild cardiomegaly. Electronically Signed: Jose Reed DO at 22:56 EDT , Service support , Assessment/Plan Active and Suspected Problems Acute myocarditis (Suspected) cardiomyopathy (Suspected) Bilateral pleural effusion (Acute) Acute CHF (Acute) This is a 22 years old female patient presented to the emergency room because of multiple symptoms including left shoulder blade pain for 3 weeks, shortness of breath and orthopnea for 6 days as well as intermittent fever and cough and she was found to have bilateral pleural effusion as well as cardiomegaly on chest x-ray and she was treated as a case of pneumonia with Levaquin that started 2 days ago. #1 acute probably systolic CHF: This is based on symptoms of shortness of breath, orthopnea and bilateral small pleural effusion and mild cardiomegaly on chest x-ray. This could be due to cardiomyopathy versus acute myocarditis. EKG revealed normal sinus rhythm without evidence of acute ischemic changes. Her BNP is normal. Troponin is negative. Plan: Admit to PCU, cardiac monitoring, serial cardiac enzymes, start IV Lasix for diuresis, replace electrolytes as appropriate, 2D echocardiogram, fluid restriction, cardiology consult. #2 bilateral small pleural effusion: This is probably transudative effusion secondary to CHF. She was started on Levaquin 2 days ago for pneumonia. CTA chest that was done on July 15, 2017 reviewed, revealed no PE or dissection, probable left lower lobe infiltrate but it is not too clear which could be also the effusion. Plan as above to treat underlying CHF, empiric antibiotics as below. #3 probable pneumonia: Patient was started on Levaquin 2 days ago and she has been having spikes of fever. She has no leukocytosis, lactic acid is normal. Plan: IV Levaquin, respiratory panel for viruses. #4 left shoulder blade pleuritic chest pain: This started 2 weeks ago which could be due to pleuritic or pericardial pain as it is worsened with taking a deep breath which could be due to acute myocarditis. Her ESR and CRP are elevated which is in favor of acute myocarditis. Plan for IV Toradol as needed, Tylenol as needed, OxyIR as needed, other plan as above. #5 DVT prophylaxis: Low risk patient, no prophylaxis indicated, ambulate. This note was generated with [employer] dictation software. It may contain incorrect words, spelling, and punctuation that were not noted in checking the note before signing. Code Visit Inpatient E&M: 43854 Init Hosp L3
--- NOTE | 2017-07-18 01:25 | HP.PCM_ITS ---
Problem List (1) Acute myocarditis Status: Suspected (2) cardiomyopathy Status: Suspected (3) Bilateral pleural effusion Status: Acute (4) Acute CHF Status: Acute History of Present Illness Date of Admission: 07/18/17 Chief Complaint: Fever, headache, shortness of breath and left shoulder pain. The patient is a 22 year old F with no significant past medical history presented to the emergency room because of multiple symptoms including fever, headache and shortness of breath as well as left shoulder pain. She is 5 weeks , delivered a baby on June 09, 2018. After delivery, she stated that she was about back to her baseline health status. 2 weeks , she started having left shoulder pain, it is on the medial aspect of the left shoulder blade, sharp and sometimes dull aching pain, 5-6 out of 10 in severity , intermittent, aggravated by taking a deep breath, no relieving factors and that pain continued for almost 2 weeks. 6 days ago, she started having exertional shortness of breath and she continues to have intermittent left shoulder blade pain, associated with orthopnea, no PND and she has been having intermittent fever. For this left shoulder blade few days ago, she went to urgent care for this left shoulder blade pain and she was reassured and she was discharged home. She came to the emergency department on July 13, 2012 for the same symptoms and she was discharged home on Percocet as needed for pain. She came back 2 days later without improvement of her symptoms. At that time, CTA chest done and revealed questionable left lower lobe infiltrate and she was started on Levaquin. That CTA chest showed no evidence of PE or dissection. The patient has been on Levaquin for 3 days and she mentioned she still having this pain at the left shoulder blade as well as shortness of breath on exertion and orthopnea. Today, she has spiked a fever at home of 101. She denied sore throat, nasal or sinus congestion. She denied cough or sputum production. She denied abdominal pain, nausea vomiting. She denies urinary symptoms. She denied constipation or diarrhea. In the emergency room, she was tachycardic, afebrile, blood pressure was stable and she was tachypneic with pulse ox of 97% on 2 L. Her routine blood work was remarkable for hemoglobin of 11.5 g/dL, otherwise normal. Her troponin was negative. BNP was normal. CRP and ESR were elevated. Chest x-ray revealed cardiomegaly and small bilateral pleural effusion. He is being admitted for bilateral pleural effusion and mild acute CHF probably systolic which could be due to cardiomyopathy versus myocarditis as well as probable pneumonia. 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 Denies: Anorexia, Chills Eyes: Denies: Blurred vision, Double vision, Drainage, Redness HEENT: Reports: Head Aches. Denies: Difficulty Hearing, Ear Pain, Eye Pain, Nasal bleeding, Nasal Congestion, Sore Throat Cardiovascular: Reports: Orthopnea. Denies: Chest Pain, Chest Tightness, Heaviness, Light Headedness, Paroxysmal Noc. Dyspnea, Syncope Respiratory: Reports: Pleuritic Pain, Shortness of breath upon exertion. Denies : Cough, Hemoptysis, Sputum production, Wheezing Gastrointestinal: Reports: Nausea. Denies: Abdominal Pain, Constipation, Diarrhea, Vomiting Genitourinary: Denies: Dysuria, Frequency, Hematuria Musculoskeletal: Reports: Shoulder Pain. Denies: Arm Pain, Back Pain, Foot Pain Skin: Denies: Dryness, Rash Neurological: Reports: Headaches. Denies: Balance problems, Double vision, Change in Speech, Slurred speech, Confusion, Difficulty swallowing, Numbness, Tingling Psychiatric: Denies: Anxiety, Depression Endocrine: Denies: Change in Body Habitus, Polydipsia VTE Information - Inpt Only VTE Present on Admission: No VTE Mechan Device Prophylaxis: None VTE Pharm Prophylaxis ordered?: No Patient Problems: Active and Suspected Problems Acute myocarditis (Suspected) cardiomyopathy (Suspected) Bilateral pleural effusion (Acute) Acute CHF (Acute) - Physical Exam General: Alert, Oriented x3, Cooperative, - - Minimal shortness of breath. HEENT: Atraumatic, PERRLA, EOMI Oral: Moist Mucosa, No Gingival or Mucosal Lesions/ Ulcerations Neck: Supple, No JVD, Negative Carotid Bruits, Trachea Midline, Thyroid Normal Size and Texture Lungs: No rhonchi, No wheeze, No rales, Diminished, Short of Breath, - - Markedly decreased breath sounds at the bases, otherwise clear. Cardiovascular: Regular rate, Regular Rhythm, Normal S1, Normal S2, No murmurs, PMI Normal Abdomen: Bowel Sounds Present, Soft, Non Tender, Non-Distended, No Hepato- splenomegaly Extremities: No clubbing, No cyanosis, No edema Skin: No rashes, No breakdown Lymphatic: No Cervical, Supraclavicular, or Inguinal Adenopathy Neurological: Cranial nerves II-XII grossly intact, Motor Exam 5/5 strength throughout Psych/Mental Status: Normal Affect, Appropriate, Alert and oriented to time, place, person, mood and affect Vital Signs Temp Pulse Resp BP Pulse Ox 98.5 F 75 24 H 113/84 H 99 07/18/17 00:08 07/18/17 00:08 07/18/17 00:08 07/18/17 00:08 07/18/17 00:08 Oxygen Flow Rate (L/min) 2 Oxygen Delivery Method Nasal Cannula Weight: 168 lb 3.403 oz Body Mass Index (BMI) 31.8 Laboratory Tests Past 24 Hrs 07/17/17 07/17/17 07/17/17 22:05 22:05 22:05 WBC 10.5 RBC 4.22 Hgb 11.5 L Hct 35.8 L MCV 84.8 MCH 27.3 MCHC 32.1 RDW 14.1 RDW Differential 44.0 H Plt Count 262 MPV 9.6 Immature Gran % (Auto) 0.200 Neut % (Auto) 78.4 H Lymph % (Auto) 9.4 L [place] % (Auto) 9.7 Eos % (Auto) 2.1 Baso % (Auto) 0.2 Absolute Neuts (auto) 8.3 H Absolute Lymphs (auto) 0.99 Total Counted Not Reportable ESR Sodium 142 Potassium 3.7 Chloride 104 Carbon Dioxide 29.0 Anion Gap 9 BUN 14 Creatinine 1.10 H Estim Creat Clear Calc 61.05 Est GFR (MDRD) Af Amer 80 Est GFR (MDRD) Non-Af 66 BUN/Creatinine Ratio 12.7 Glucose 115 H Lactic Acid 1.0 Calcium 8.4 L Troponin I C-React Prot Ext Range B-Natriuretic Peptide 07/17/17 07/17/17 07/17/17 22:05 22:05 22:05 WBC RBC Hgb Hct MCV MCH MCHC RDW RDW Differential Plt Count MPV Immature Gran % (Auto) Neut % (Auto) Lymph % (Auto) [place] % (Auto) Eos % (Auto) Baso % (Auto) Absolute Neuts (auto) Absolute Lymphs (auto) Total Counted ESR 32 H Sodium Potassium Chloride Carbon Dioxide Anion Gap BUN Creatinine Estim Creat Clear Calc Est GFR (MDRD) Af Amer Est GFR (MDRD) Non-Af BUN/Creatinine Ratio Glucose Lactic Acid Calcium Troponin I < 0.02 C-React Prot Ext Range 131.00 H B-Natriuretic Peptide 58.8 Clinical Impression(s) from Imaging Studies Chest X-Ray 07/17/17 22:11 IMPRESSION: Lower lung airspace disease. Bilateral effusion. Mild cardiomegaly. Electronically Signed: Jose Reed DO at 22:56 EDT , Service support , Assessment/Plan Active and Suspected Problems Acute myocarditis (Suspected) cardiomyopathy (Suspected) Bilateral pleural effusion (Acute) Acute CHF (Acute) This is a 22 years old female patient presented to the emergency room because of multiple symptoms including left shoulder blade pain for 3 weeks, shortness of breath and orthopnea for 6 days as well as intermittent fever and cough and she was found to have bilateral pleural effusion as well as cardiomegaly on chest x-ray and she was treated as a case of pneumonia with Levaquin that started 2 days ago. #1 acute probably systolic CHF: This is based on symptoms of shortness of breath , orthopnea and bilateral small pleural effusion and mild cardiomegaly on chest x-ray. This could be due to cardiomyopathy versus acute myocarditis. EKG revealed normal sinus rhythm without evidence of acute ischemic changes. Her BNP is normal. Troponin is negative. Plan: Admit to PCU , cardiac monitoring, serial cardiac enzymes, start IV Lasix for diuresis, replace electrolytes as appropriate, 2D echocardiogram, fluid restriction, cardiology consult. #2 bilateral small pleural effusion: This is probably transudative effusion secondary to CHF. She was started on Levaquin 2 days ago for pneumonia. CTA chest that was done on July 15, 2017 reviewed, revealed no PE or dissection, probable left lower lobe infiltrate but it is not too clear which could be also the effusion. Plan as above to treat underlying CHF, empiric antibiotics as below. #3 probable pneumonia: Patient was started on Levaquin 2 days ago and she has been having spikes of fever. She has no leukocytosis, lactic acid is normal. Plan: IV Levaquin, respiratory panel for viruses. #4 left shoulder blade pleuritic chest pain: This started 2 weeks ago which could be due to pleuritic or pericardial pain as it is worsened with taking a deep breath which could be due to acute myocarditis. Her ESR and CRP are elevated which is in favor of acute myocarditis. Plan for IV Toradol as needed , Tylenol as needed, OxyIR as needed, other plan as above. #5 DVT prophylaxis: Low risk patient, no prophylaxis indicated, ambulate. This note was generated with [employer] dictation software. It may contain incorrect words, spelling, and punctuation that were not noted in checking the note before signing. Code Visit Inpatient E&M: 02234 Init Hosp L3
--- NOTE | 2017-07-18 01:27 | ECHOD_ITS ---
Reason For Study: CHF Procedure This was a 2D Doppler, Color Flow transthoracic echocardiogram. Exam performed portable in patient room. Left Ventricle Normal LV size. Left ventricular systolic function is normal. The estimated ejection fraction is 55 %. No evidence for diastolic dysfunction. No regional wall motion abnormalities noted. Right Ventricle Normal RV size. Normal systolic function. Atria Normal left atrium. Normal right atrium. Mitral Valve Normal mitral valve. Tricuspid Valve Normal tricuspid valve. Aortic Valve Normal aortic valve. Trisinus/trileaflet aortic valve. Pulmonic Valve Normal pulmonic valve. Great Vessels Normal aortic root. The pulmonary artery is normal size. Normal inferior vena cava. Pericardium/Pleural No pericardial effusion. MMode/2D Measurements & Calculations LVIDd: 4.8 cm IVSd: 1.0 cm Ao root diam: 2.4 cm LVIDs: 3.2 cm LVPWd: 0.86 cm LA dimension: 4.0 cm RVDd: 3.6 cm FS: 32.9 % LAV(MOD-bp): 43.2 ml LA A4 area: 15.2 cm2 RA A4 area: 11.5 cm2 LAV(MOD-bp) Indexed: 24.7 ml/m2 LAV(MOD-sp2): 49.9 ml LAV(MOD-sp4): 35.7 ml Doppler Measurements & Calculations MV E max hugo: 85.4 cm/sec Lat Peak E' Hugo: 16.8 cm/sec Med Peak E' Hugo: 11.2 cm/sec MV A max hugo: 56.8 cm/sec E/E' lat: 5.1 E/E' med: 7.7 MV E/A: 1.5 Ao V2 max: 113.1 cm/sec LV V1 max: 93.2 cm/sec PA V2 max: 114.4 cm/sec Ao max P.1 mmHg LV V1 max P.5 mmHg Ao V2 mean: 83.7 cm/sec Ao mean P.1 mmHg Ao V2 VTI: 26.6 cm TR max hugo: 204.8 cm/sec TR max P.8 mmHg Interpretation Summary Normal LV size. Left ventricular systolic function is normal. The estimated ejection fraction is 55 %. No evidence for diastolic dysfunction. Structurally normal valves. Ordering Physician: Meka Demarco Referring Physician: Sendy Ferraro Performed By: Taylor Vieira, ENDY, RVT
[2017-07-18 01:59] LABS: Thyroid Stim Hormone (TSH) 2.44 uIU/mL (0.358-3.74)
[2017-07-18] MEDS: 0.9% NaCl Peripheral Flush Adult/Peds IV ×3 (02:32→06:21)
[2017-07-18] MEDS: levoFLOXacin IV 750 MG/150 ML BAG 100 MG IV (02:32)
[2017-07-18] MEDS: Furosemide 40 MG/4 ML Vial IV (02:32)
[2017-07-18 02:45] LABS: D-Dimer Quantitative (DVT/PE) 2.44 FEU/ug/m (0.27-0.49); International Normalized Ratio 1.2; Prothrombin Time (Protime)PT. 15.3 SECONDS (11.7-14.9)
--- NOTE | 2017-07-18 02:50 | PCM.PN.BLA ---
Progress Note D-dimer came back elevated at 2.44. CTA chest done on July 15, 2017 and showed no evidence of acute PE.
--- NOTE | 2017-07-18 05:55 | EKG12_ITS ---
Test Reason : AM EKG Blood Pressure : / mmHG Vent. Rate : 082 BPM Atrial Rate : 082 BPM P-R Int : 162 ms QRS Dur : 080 ms QT Int : 388 ms P-R-T Axes : 023 017 -07 degrees QTc Int : 453 ms Normal sinus rhythm T wave abnormality, consider anterior ischemia Abnormal ECG When compared with ECG of 17-JUL-2017 23:37, MANUAL COMPARISON REQUIRED, DATA IS UNCONFIRMED Confirmed by DELILAH RODRIGUEZ, JUANIS ([id number]), communications editor DIANA CERNA ([id number]) on 07/23/2017 2:18:45 PM Referred By: DR SALAMANCA Confirmed By:JUANIS MAZARIEGOS MD
[2017-07-18] MEDS: Ketorolac 15 MG/ML Vial IV (06:21)
[2017-07-18 06:33] LABS: Absolute Lymphocyte Count 1.56 X10^3/ul (0.83-4.51); Absolute Neutrophil Count 5.7 X10^3/uL (2.0-7.7); Basophil# 0.02 X10^3/uL; Basophil% 0.2 % (0-1); Eosinophil# 0.23 X10^3/uL; Eosinophils% 2.7 % (0-5); Hematocrit 37.1 % (37-47); Hemoglobin 11.9 g/dl (12.0-15.0); Lymphocyte # 1.56 X10^3/ul (4.0); Lymphocyte % 18.2 % (19-41); Mean Corp Hgb Conc 32.1 g/gl (32-36); Mean Corpuscular Hgb 27.2 pg (27.0-32.0); Mean Corpuscular Volume 84.7 fL (81-99); Mean Platelet Vol. 9.5 fl (6.2-12.0); Monocyte# 1.05 X10^3/uL; Monocyte% 12.2 % (0-10); Neutrophil # 5.72 X10^3/uL (2.7-7.7); Neutrophil % 66.6 % (47-70); Platelet Count 281 K/mm3 (150-450); Red Blood Count 4.38 M/mm3 (4.2-5.4); White Blood Count 8.6 K/mm3 (4.4-11.0)
[2017-07-18 06:34] LABS: POSITIVE COUNT NO; POSITIVE DIFFERENTIAL NO; POSITIVE MORPHOLOGY NO
[2017-07-18 06:52] LABS: Anion Gap 10 (5-15); BUN 11 mg/dL (7-18); BUN/Creat Ratio 10.6 RATIO (10-20); Calcium,Total 8.5 mg/dL (8.5-10.1); Chloride 104 mmol/L (98-107); Creatinine, Serum 1.04 mg/dL (0.55-1.02); EST Glomerular Filtration Rate 71 mL/min (>60); Est Glom Filt Rate - Afr Amer 86 mL/min (>60); Estimated Creatinine Clearance 64.57 ml/min; Glucose 82 mg/dL (74-106); Potassium 3.4 mmol/L (3.5-5.1); Sodium Level 144 mmol/L (136-145)
--- NOTE | 2017-07-18 07:23 | PN_ITS ---
Subjective: Patient is a 22-year-old female who is 5 weeks who presented to the emergency room at [facility] on 07/18/2017 with persistent complaints of headache, shortness of breath and left shoulder pain. The pain is aggravated by taking a deep breath. It is intermittent and sometimes sharp and sometimes dull. She had been having intermittent fevers. A CTA of the chest done on 07/15/2017 showed no pulmonary emboli, aneurysm or dissection. There was a small left pleural effusion and a questionable left lower lobe infiltrate. There was pericardial thickening. Vital signs in the emergency room were temperature 98.8, pulse rate 125, blood pressure 135/57, respiratory rate 20 and she was 96% saturated on room air. White blood cell count was 10.5 with 78% neutrophils. Hemoglobin and platelets were unremarkable. Electrolytes were within normal limits and the BUN was 14 with a creatinine of 1.1. A d-dimer was increased at 2.44. ESR was 32 and a C-reactive protein was 131. BNP was 58 and TSH was 2.44. Serial cardiac enzymes have been negative. Chest x-ray in the emergency room showed bilateral pleural effusions with questionable infiltrates in the bases but no significant pulmonary vascular congestion. She was admitted to PCU and started on Lasix 40 BID. She was continued on Levaquin. Consult was ordered with Dr. Guerrero. - Physical Exam General: Alert, Oriented x3, Cooperative, No apparent distress, Well developed, Well nourished HEENT: Atraumatic, PERRLA, EOMI Oral: Moist Mucosa Neck: Supple, No JVD, Negative Carotid Bruits, No Nodes, No Nuchal Rigidity, Trachea Midline Lungs: Diminished - She is not taking a good tidal volume......there is marked decreased BS's in the bases but, I thjink this is due to a poor inspiratory effort. Cardiovascular: Regular rate, Regular Rhythm, Normal S1, Normal S2, No murmurs, No Ectopic Activity, No rub noted, No Gallop Abdomen: Bowel Sounds Present, Soft, Non Tender, Non-Distended Extremities: No clubbing, No cyanosis, No edema, No Calf Tenderness Skin: No rashes Neurological: Cranial nerves II-XII grossly intact, Neuro grossly intact Psych/Mental Status: Flat Affect Vital Signs Temp Pulse Resp BP Pulse Ox 98.5 F 79 18 150/92 H 98 07/18/17 01:30 07/18/17 03:00 07/18/17 01:30 07/18/17 01:49 07/18/17 01:30 Oxygen Flow Rate (L/min) 2 Oxygen Delivery Method Nasal Cannula Weight: 164 lb 10.965 oz Body Mass Index (BMI) 31.1 Laboratory Tests Past 24 Hrs 07/18/17 07/18/17 07/18/17 02:15 02:15 02:15 WBC RBC Hgb Hct MCV MCH MCHC RDW RDW Differential Plt Count MPV Immature Gran % (Auto) Neut % (Auto) Lymph % (Auto) [place] % (Auto) Eos % (Auto) Baso % (Auto) Absolute Neuts (auto) Absolute Lymphs (auto) Total Counted PT 15.3 H INR 1.2 D-Dimer Quant (PE/DVT) 2.44 H* Sodium Potassium Chloride Carbon Dioxide Anion Gap BUN Creatinine Estim Creat Clear Calc Est GFR (MDRD) Af Amer Est GFR (MDRD) Non-Af BUN/Creatinine Ratio Glucose Calcium Troponin I < 0.02 07/18/17 07/18/17 07/18/17 06:10 06:10 06:10 WBC 8.6 RBC 4.38 Hgb 11.9 L Hct 37.1 MCV 84.7 MCH 27.2 MCHC 32.1 RDW 14.0 RDW Differential 44.0 H Plt Count 281 MPV 9.5 Immature Gran % (Auto) 0.100 Neut % (Auto) 66.6 Lymph % (Auto) 18.2 L [place] % (Auto) 12.2 H Eos % (Auto) 2.7 Baso % (Auto) 0.2 Absolute Neuts (auto) 5.7 Absolute Lymphs (auto) 1.56 Total Counted Not Reportable PT INR D-Dimer Quant (PE/DVT) Sodium 144 Potassium 3.4 L Chloride 104 Carbon Dioxide 30.0 Anion Gap 10 BUN 11 Creatinine 1.04 H Estim Creat Clear Calc 64.57 Est GFR (MDRD) Af Amer 86 Est GFR (MDRD) Non-Af 71 BUN/Creatinine Ratio 10.6 Glucose 82 Calcium 8.5 Troponin I < 0.02 Medical Necessity - Tobacco Use Smoking Status: Never smoker Assessment/Plan Impressions 1. possible CHF but, will await the results of the ECHO. Other possibilities include PNA with a parapneumonia effusions. 2. BL pleural effusions 3. hx of psoriasis and possible psoriatic arthritis 4. 5 weeks post . Await the results of the ECHO to decide about disposition. Discussed with Dr. Guerrero.
[2017-07-18 07:35] LABS: AST(SGOT) 49 U/L (15-37); Alanine Aminotransfer ALT/SGPT 87 U/L (13-56); Alkaline Phosphatase 163 U/L (45-117); Bilirubin, Direct 0.11 mg/dL (0.00-0.30); Globulin 4.1 g/dL (2.2-4.2); Protein, Total 7.1 g/dL (6.4-8.2); Rheumatoid Factor < 10.0 IU/mL (<15)
--- NOTE | 2017-07-18 08:48 | NURSING ---
SPOKE TO MOTHER ABOUT BREAST MILK AND NEW MEDICATIONS, MOTHER STATES THAT THEY ARE DUMPING THE MILK AND THE IS TAKING FORMULA AT THIS TIME.
--- NOTE | 2017-07-18 09:42 | CT_ITS ---
STUDY: CT CHEST WITHOUT CONTRAST REASON FOR EXAM: Female, 22 years old. Pleural effusion, 5 weeks RADIATION DOSAGE (If Supplied By Facility): CTDIvol = ( 10.90 ) mGy, DLP = ( 356.80 ) mGycm TECHNIQUE: Transaxial imaging was performed without the administration of intravenous contrast material. Multiplanar coronal and sagittal images were reformatted. Individualized dose optimization techniques were used for this CT. COMPARISON: CXR 07/17/2017. FINDINGS: Small left pleural effusion. Left lower lung compressive atelectasis. Smaller right pleural effusion. There is no demonstrated pleural abnormality. Normal heart and pericardium. Normal mediastinum. Normal hilar regions. Normal unenhanced pulmonary arteries. Normal aorta arch and descending thoracic aorta. Normal osseous structures. There is no demonstrated abnormality of the visualized upper abdomen. CT/Chest without Contrast IMPRESSION: Small left pleural effusion with left lower lung compressive atelectasis. Smaller right pleural effusion. Electronically Signed: Jose Reed DO at 10:29 EDT , Service support ,
[2017-07-18] MEDS: Naproxen 500 MG Tablet PO ×2 (09:48→16:27)
--- NOTE | 2017-07-18 09:55 | CASEMGMT ---
Tertiary Hospitals in network with [facility]: [facility], [facility], [facility], and [facility].
--- NOTE | 2017-07-18 10:50 | PCM.CONS.C ---
Reason for Consult Date of Consultation: 07/18/17 Reason for Consultation: Shortness of breath and pleural effusions History of Present Illness: The patient is a 22 year old F with no significant past medical history presented to the emergency room because of multiple symptoms including fever, headache and shortness of breath as well as left shoulder pain. She is 5 weeks , delivered a baby on June 09, 2018. After delivery, she stated that she was about back to her baseline health status. 2 weeks , she started having left shoulder pain, it is on the medial aspect of the left shoulder blade, sharp and sometimes dull aching pain, 5-6 out of 10 in severity, intermittent, aggravated by taking a deep breath, no relieving factors and that pain continued for almost 2 weeks. 6 days ago, she started having exertional shortness of breath and she continues to have intermittent left shoulder blade pain, associated with orthopnea, no PND and she has been having intermittent fever. For this left shoulder blade few days ago, she went to urgent care for this left shoulder blade pain and she was reassured and she was discharged home. She came to the emergency department on July 13, 2017 for the same symptoms and she was discharged home on Percocet as needed for pain. She came back 2 days later without improvement of her symptoms. At that time, CTA chest done and revealed questionable left lower lobe infiltrate and she was started on Levaquin. That CTA chest showed no evidence of PE or dissection. The patient has been on Levaquin for 3 days and she mentioned she still having this pain at the left shoulder blade as well as shortness of breath on exertion and orthopnea. Today, she has spiked a fever at home of 101. She denied sore throat, nasal or sinus congestion. She denied cough or sputum production. She denied abdominal pain, nausea vomiting. She denies urinary symptoms. She denied constipation or diarrhea. In the emergency room, she was tachycardic, afebrile, blood pressure was stable and she was tachypneic with pulse ox of 97% on 2 L. Her routine blood work was remarkable for hemoglobin of 11.5 g/dL, otherwise normal. Her troponin was negative. BNP was normal. CRP and ESR were elevated. Chest x-ray revealed cardiomegaly and small bilateral pleural effusion. He is being admitted for bilateral pleural effusion and mild acute CHF probably systolic which could be due to cardiomyopathy versus myocarditis as well as probable pneumonia. This morning she appears to be doing well with no chest pain she still has some mild shortness of breath. Past Medical History Allergies/Adverse Reactions: Allergies No Known Allergies Allergy (Verified 07/17/17 21:36) Home Medications: Ambulatory Orders Medication Instructions Recorded Levofloxacin [Levaquin] 750 mg PO DAILY #7 tab 07/15/17 Oxycodone HCl/Acetaminophen 1 tablet PO Q6H PRN PRN 07/17/17 [Percocet 5/325] Surgical History: no surgical history Psychiatric History: No pertinent psych hx HELPDESK MANAGER History: No pertinent HELPDESK MANAGER history - *Family History Maternal History Items: No pertinent history Paternal History Items: No pertinent history Lives: With Family Smoking Status: Never smoker Alcohol: None Drugs: None Review of Systems - Review of Systems General: Reports: Fever. Denies: Fatigue, Night Sweats Cardiovascular: Reports: Shortness of Breath, Shortness of Breath at Rest. Denies: Chest Discomfort, Orthopnea, PND, Peripheral Edema, Palpitations, Lightheadedness, Dizziness, Near Syncope, Syncope Respiratory: Reports: Cough. Denies: Sputum Production, Hemoptysis Gastrointestinal: Denies: Hematemesis, Hematochezia, Melena Genitourinary: Denies: Dysuria, Hematuria Skin: Denies: Rash Subjectve: Pleasant lady in no apparent distress Objective: Vital Signs Temp Pulse Resp BP Pulse Ox 98.6 F 82 16 98/56 L 98 07/18/17 06:00 07/18/17 07:39 07/18/17 06:00 07/18/17 10:08 07/18/17 07:40 Oxygen Flow Rate (L/min) 2 Oxygen Delivery Method Nasal Cannula Weight: 164 lb 10.965 oz Body Mass Index (BMI) 31.1 General: Awake, Alert, Oriented x 3 HEENT: PERRL, EOMI, Sclera Non Icteric Neck: Supple, Good ROM, No Lymph Node Enlargement Lungs: Clear to auscultation Cardiovascular: Regular Rhythm, Normal S1, Normal S2, No Murmurs, No Rubs, No Gallops Vascular: No Carotid Bruits, Normal Femoral Pulses, Normal Radial Pulses, Normal Dorsalis Pedal Pulse, Normal Posterior Tibial Pulses Abdomen: Bowel Sounds Present, Soft, Non Tender, No HSM, No Organomegaly Extremities: No Cyanosis, No Clubbing, No edema Neurological: No Focal Motor or Sensory Deficit 07/18/17 02:15: PT 15.3 H, INR 1.2 07/18/17 02:15: D-Dimer Quant (PE/DVT) 2.44 H* 07/18/17 02:15: Troponin I < 0.02 07/18/17 06:10: WBC 8.6, RBC 4.38, Hgb 11.9 L, Hct 37.1, MCV 84.7, MCH 27.2, MCHC 32.1, RDW 14.0, RDW Differential 44.0 H, Plt Count 281, MPV 9.5, Immature Gran % (Auto) 0.100, Neut % (Auto) 66.6, Lymph % (Auto) 18.2 L, [place] % (Auto) 12.2 H, Eos % (Auto) 2.7, Baso % (Auto) 0.2, Absolute Neuts (auto) 5.7, Total Counted Not Reportable 07/18/17 06:10: Sodium 144, Potassium 3.4 L, Chloride 104, Carbon Dioxide 30.0, Anion Gap 10, BUN 11, Creatinine 1.04 H, Est GFR (MDRD) Af Amer 86, Est GFR (MDRD) Non-Af 71, BUN/Creatinine Ratio 10.6, Glucose 82, Calcium 8.5 07/18/17 06:10: Troponin I < 0.02 07/18/17 06:10: Magnesium 2.0, Total Bilirubin 0.40, Direct Bilirubin 0.11 Rhythm: EKG: Normal sinus rhythm with no acute changes Assessment/Plan 1. Shortness of breath The exact etiology of her shortness of breath is unclear at this particular time. Her natriuretic peptide level is noted to be normal and her echocardiogram demonstrates overall preserved left ventricular systolic function with no significant regurgitant or stenotic jets. Her pulmonary pressures are noted to be normal. At this particular time I do not think that this is cardiac in etiology and may be related to an inflammatory process or connective tissue process. She does have a history of rheumatoid arthritis. After discussion with the patient as well as the hospitalist. I suspect that the prudent course of action would be to refer her to a tertiary [facility] center where there is the availability of a senior network engineer, infectious disease, end maker who made to give a try and sort this out. I do not have any evidence that this is related to a myocarditis or a pericarditis. Thank you for allowing me to participate in the care of your patient. Please don't hesitate to call if any issues arise
--- NOTE | 2017-07-18 11:08 | CON.PCM_ITS ---
Reason for Consult Date of Consultation: 07/18/17 Reason for Consultation: Shortness of breath and pleural effusions History of Present Illness: The patient is a 22 year old F with no significant past medical history presented to the emergency room because of multiple symptoms including fever, headache and shortness of breath as well as left shoulder pain. She is 5 weeks , delivered a baby on June 09, 2018. After delivery, she stated that she was about back to her baseline health status. 2 weeks , she started having left shoulder pain, it is on the medial aspect of the left shoulder blade, sharp and sometimes dull aching pain, 5-6 out of 10 in severity , intermittent, aggravated by taking a deep breath, no relieving factors and that pain continued for almost 2 weeks. 6 days ago, she started having exertional shortness of breath and she continues to have intermittent left shoulder blade pain, associated with orthopnea, no PND and she has been having intermittent fever. For this left shoulder blade few days ago, she went to urgent care for this left shoulder blade pain and she was reassured and she was discharged home. She came to the emergency department on July 13, 2017 for the same symptoms and she was discharged home on Percocet as needed for pain. She came back 2 days later without improvement of her symptoms. At that time, CTA chest done and revealed questionable left lower lobe infiltrate and she was started on Levaquin. That CTA chest showed no evidence of PE or dissection. The patient has been on Levaquin for 3 days and she mentioned she still having this pain at the left shoulder blade as well as shortness of breath on exertion and orthopnea. Today, she has spiked a fever at home of 101. She denied sore throat, nasal or sinus congestion. She denied cough or sputum production. She denied abdominal pain, nausea vomiting. She denies urinary symptoms. She denied constipation or diarrhea. In the emergency room, she was tachycardic, afebrile, blood pressure was stable and she was tachypneic with pulse ox of 97% on 2 L. Her routine blood work was remarkable for hemoglobin of 11.5 g/dL, otherwise normal. Her troponin was negative. BNP was normal. CRP and ESR were elevated. Chest x-ray revealed cardiomegaly and small bilateral pleural effusion. He is being admitted for bilateral pleural effusion and mild acute CHF probably systolic which could be due to cardiomyopathy versus myocarditis as well as probable pneumonia. This morning she appears to be doing well with no chest pain she still has some mild shortness of breath. Past Medical History Allergies/Adverse Reactions: Allergies No Known Allergies Allergy (Verified 07/17/17 21:36) Home Medications: Ambulatory Orders Medication Instructions Recorded Levofloxacin [Levaquin] 750 mg PO DAILY #7 tab 07/15/17 Oxycodone HCl/Acetaminophen 1 tablet PO Q6H PRN PRN 07/17/17 [Percocet 5/325] Surgical History: no surgical history Psychiatric History: No pertinent psych hx OFFICE LEAD History: No pertinent OFFICE LEAD history - *Family History Maternal History Items: No pertinent history Paternal History Items: No pertinent history Lives: With Family Smoking Status: Never smoker Alcohol: None Drugs: None Review of Systems - Review of Systems General: Reports: Fever. Denies: Fatigue, Night Sweats Cardiovascular: Reports: Shortness of Breath, Shortness of Breath at Rest. Denies: Chest Discomfort, Orthopnea, PND, Peripheral Edema, Palpitations, Lightheadedness, Dizziness, Near Syncope, Syncope Respiratory: Reports: Cough. Denies: Sputum Production, Hemoptysis Gastrointestinal: Denies: Hematemesis, Hematochezia, Melena Genitourinary: Denies: Dysuria, Hematuria Skin: Denies: Rash Subjectve: Pleasant lady in no apparent distress Objective: Vital Signs Temp Pulse Resp BP Pulse Ox 98.6 F 82 16 98/56 L 98 07/18/17 06:00 07/18/17 07:39 07/18/17 06:00 07/18/17 10:08 07/18/17 07:40 Oxygen Flow Rate (L/min) 2 Oxygen Delivery Method Nasal Cannula Weight: 164 lb 10.965 oz Body Mass Index (BMI) 31.1 General: Awake, Alert, Oriented x 3 HEENT: PERRL, EOMI, Sclera Non Icteric Neck: Supple, Good ROM, No Lymph Node Enlargement Lungs: Clear to auscultation Cardiovascular: Regular Rhythm, Normal S1, Normal S2, No Murmurs, No Rubs, No Gallops Vascular: No Carotid Bruits, Normal Femoral Pulses, Normal Radial Pulses, Normal Dorsalis Pedal Pulse, Normal Posterior Tibial Pulses Abdomen: Bowel Sounds Present, Soft, Non Tender, No HSM, No Organomegaly Extremities: No Cyanosis, No Clubbing, No edema Neurological: No Focal Motor or Sensory Deficit 07/18/17 02:15: PT 15.3 H, INR 1.2 07/18/17 02:15: D-Dimer Quant (PE/DVT) 2.44 H* 07/18/17 02:15: Troponin I < 0.02 07/18/17 06:10: WBC 8.6, RBC 4.38, Hgb 11.9 L, Hct 37.1, MCV 84.7, MCH 27.2, MCHC 32.1, RDW 14.0, RDW Differential 44.0 H, Plt Count 281, MPV 9.5, Immature Gran % (Auto) 0.100, Neut % (Auto) 66.6, Lymph % (Auto) 18.2 L, [place] % (Auto) 12.2 H, Eos % (Auto) 2.7, Baso % (Auto) 0.2, Absolute Neuts (auto) 5.7, Total Counted Not Reportable 07/18/17 06:10: Sodium 144, Potassium 3.4 L, Chloride 104, Carbon Dioxide 30.0, Anion Gap 10, BUN 11, Creatinine 1.04 H, Est GFR (MDRD) Af Amer 86, Est GFR ( MDRD) Non-Af 71, BUN/Creatinine Ratio 10.6, Glucose 82, Calcium 8.5 07/18/17 06:10: Troponin I < 0.02 07/18/17 06:10: Magnesium 2.0, Total Bilirubin 0.40, Direct Bilirubin 0.11 Rhythm: EKG: Normal sinus rhythm with no acute changes Assessment/Plan 1. Shortness of breath The exact etiology of her shortness of breath is unclear at this particular time. Her natriuretic peptide level is noted to be normal and her echocardiogram demonstrates overall preserved left ventricular systolic function with no significant regurgitant or stenotic jets. Her pulmonary pressures are noted to be normal. At this particular time I do not think that this is cardiac in etiology and may be related to an inflammatory process or connective tissue process. She does have a history of rheumatoid arthritis. After discussion with the patient as well as the hospitalist. I suspect that the prudent course of action would be to refer her to a tertiary [facility] center where there is the availability of a sybase developer, infectious disease, director of clinical trials who made to give a try and sort this out. I do not have any evidence that this is related to a myocarditis or a pericarditis. Thank you for allowing me to participate in the care of your patient. Please don't hesitate to call if any issues arise
[2017-07-18] MEDS: Furosemide 40 MG Tablet PO (14:21)
[2017-07-19] VITALS (8 sets, daily range): BP systolic 99–117; BP diastolic 47–61; PULSE 58–81; RESP 15–18; TEMP 36.6–36.7; O2SAT 94–98
[2017-07-19] MEDS: levoFLOXacin 750 MG Tablet PO (05:17)
--- NOTE | 2017-07-19 05:20 | RAD_ITS ---
STUDY: X-RAY CHEST REASON FOR EXAM: Female, 22 years old. Pleural effusion TECHNIQUE: [id number] decubitus COMPARISON: July 17, 2017 FINDINGS: There is no layering of fluid in the right pleural space. The right-sided pleural effusion is therefore loculated along the pleural abnormality may be pleural reaction rather than effusion. The heart remains slightly enlarged. Normal visualized thoracic spine. Normal visualized ribs, clavicles, and shoulders. There is no demonstrated abnormality of the visualized soft tissue structures of the upper abdomen. RAD/Special CXR (Obl/Decub/A/L) IMPRESSION: No evidence of layering of fluid in the right hemithorax suggest the presence of free fluid Pleural findings may therefore be from pleural reaction or loculated effusion Electronically Signed: Tawanda Unger, at 9:12 EDT Tel , Service support ,
[2017-07-19 06:45] LABS: Absolute Lymphocyte Count 1.78 X10^3/ul (0.83-4.51); Absolute Neutrophil Count 5.4 X10^3/uL (2.0-7.7); Basophil# 0.03 X10^3/uL; Basophil% 0.4 % (0-1); Eosinophil# 0.33 X10^3/uL; Hematocrit 36.3 % (37-47); Hemoglobin 11.6 g/dl (12.0-15.0); Lymphocyte # 1.78 X10^3/ul (4.0); Lymphocyte % 21.5 % (19-41); Mean Corpuscular Volume 84.6 fL (81-99); Mean Platelet Vol. 9.8 fl (6.2-12.0); Monocyte# 0.71 X10^3/uL; Monocyte% 8.6 % (0-10); Neutrophil % 65.3 % (47-70); Platelet Count 325 K/mm3 (150-450); RBC Distribution Width CV 13.8 % (11.6-14.6); RBC Distribution Width SD 42.2 fl (35.1-43.9); Red Blood Count 4.29 M/mm3 (4.2-5.4); White Blood Count 8.3 K/mm3 (4.4-11.0)
[2017-07-19 06:53] LABS: POSITIVE COUNT NO; POSITIVE DIFFERENTIAL NO; POSITIVE MORPHOLOGY NO
[2017-07-19 06:54] LABS: Anion Gap 8 (5-15); BUN 20 mg/dL (7-18); BUN/Creat Ratio 21.2 RATIO (10-20); Calcium,Total 8.8 mg/dL (8.5-10.1); Chloride 103 mmol/L (98-107); Creatinine, Serum 0.94 mg/dL (0.55-1.02); EST Glomerular Filtration Rate 79 mL/min (>60); Est Glom Filt Rate - Afr Amer 96 mL/min (>60); Estimated Creatinine Clearance 71.44 ml/min; Glucose 86 mg/dL (74-106); Potassium 3.8 mmol/L (3.5-5.1); Sodium Level 139 mmol/L (136-145)
--- NOTE | 2017-07-19 09:14 | PN.CARD_ITS ---
Subjectve: Patient seen and evaluated. Appears to be breathing better. No discomfort. Objective: Vital Signs Temp Pulse Resp BP Pulse Ox 97.8 F 63 16 107/57 L 95 07/19/17 04:30 07/19/17 07:14 07/19/17 04:30 07/19/17 04:30 07/19/17 07:50 Oxygen Flow Rate (L/min) 2 Oxygen Delivery Method Room Air Weight: 160 lb 14.999 oz Body Mass Index (BMI) 31.1 Intake and Output for Last 24 Hours 07/17/17 07/18/17 07/19/17 23:59 23:59 23:59 Intake Total 720 / 720 150 / 150 Output Total 4650 / 4650 350 / 350 Balance -3930 / -3930 -200 / -200 General: Awake, Alert, Oriented x 3 HEENT: PERRL, EOMI, Sclera Non Icteric Neck: Supple, Good ROM, No Lymph Node Enlargement Lungs: Diminished [place] Cardiovascular: Regular Rhythm, Normal S1, Normal S2, No Murmurs, No Rubs, No Gallops Vascular: No Carotid Bruits, Normal Femoral Pulses, Normal Radial Pulses, Normal Dorsalis Pedal Pulse, Normal Posterior Tibial Pulses Abdomen: Bowel Sounds Present, Soft, Non Tender, No HSM, No Organomegaly Extremities: No Cyanosis, No Clubbing, No edema Neurological: No Focal Motor or Sensory Deficit 07/18/17 12:05: Troponin I < 0.02 07/19/17 06:10: WBC 8.3, RBC 4.29, Hgb 11.6 L, Hct 36.3 L, MCV 84.6, MCH 27.0, MCHC 32.0, RDW 13.8, RDW Differential 42.2, Plt Count 325, MPV 9.8, Immature Gran % (Auto) 0.200, Neut % (Auto) 65.3, Lymph % (Auto) 21.5, [place] % (Auto) 8.6 , Eos % (Auto) 4.0, Baso % (Auto) 0.4, Absolute Neuts (auto) 5.4, Total Counted Not Reportable 07/19/17 06:10: Sodium 139, Potassium 3.8, Chloride 103, Carbon Dioxide 28.0, Anion Gap 8, BUN 20 H, Creatinine 0.94, Est GFR (MDRD) Af Amer 96, Est GFR (MDRD ) Non-Af 79, BUN/Creatinine Ratio 21.2 H, Glucose 86, Calcium 8.8 Rhythm: EKG: ECHO: Stress Test: Cardiac Cath: PCI: CT Surgery: Holter monitor: EPS: PPM: CXR: Chest CT Scan: Medical Necessity - Tobacco Use Smoking Status: Never smoker Assessment/Plan 1. Shortness of breath The exact etiology of her shortness of breath is unclear at this particular time. Her natriuretic peptide level is noted to be normal and her echocardiogram demonstrates overall preserved left ventricular systolic function with no significant regurgitant or stenotic jets. Her pulmonary pressures are noted to be normal. At this particular time I do not think that this is cardiac in etiology and may be related to an inflammatory process or connective tissue process. She does have a history of rheumatoid arthritis. She appears to have improved with the colchicine as well as the Lasix. This can probably be continued. No further cardiac recommendations at this time. Thank you for allowing me to participate in the care of your patient. Please don't hesitate to call if any issues arise
[2017-07-19] MEDS: Naproxen 500 MG Tablet PO (10:08)
--- NOTE | 2017-07-19 11:13 | NURSING ---
Patient reports feeling sweaty. Cool cloth applied to forehead. Denies other complaints. VSS. Will continue to monitor.
--- NOTE | 2017-07-19 11:26 | PCM.CONS.GEN ---
Problem List (1) cardiomyopathy Status: Suspected (2) Bilateral pleural effusion Status: Acute (3) Acute CHF Status: Acute Reason for Consult Date of Consultation: 07/19/17 Reason for Consultation: Pleural effusions History of Present Illness: The patient is a 22 year old F, with past medical history listed below, who presented to [facility] on 07/18/2017 secondary to fever, headache and pleuritic type chest pain. Patient was 5 weeks at the time of presentation. At approximately 2 weeks , patient had reported a pleuritic type chest pain. This was not associated with orthopnea, but patient was having intermittent fever. Patient went to an urgent care center prior to her presentation here and was sent home on Percocet. Patient presented again 2 days later and a CTA showed a questionable left lower lobe infiltrate and patient was placed on Levaquin therapy. Patient presented again secondary to complaints of continued chest pain. Patient did require 2 L nasal cannula to maintain saturations. Patient was noted to be tachycardic and slightly anemic at 11.5 g/dL, but otherwise normal. Patient was admitted to the general medical floor for further evaluation. While admitted, patient did have an echocardiogram showing an EF of 55% without diastolic dysfunction or structural valve abnormalities. She has progressively improved over the course of the hospitalization and now feels close to baseline. However, patient's and family were very nervous about her going home and had requested a pulmonary consultation. Patient denies any previous pleural effusions. Patient does have a history of psoriasis, but denies any history of atopy, asthma or other lung disorder. Patient states that her was uncomplicated. Patient has not been hospitalized for breathing complications in the past. There is no family history of previous complications. Patient denies any trauma. Patient denies any tobacco, alcohol or drug exposure. Past Medical History Allergies No Known Allergies Allergy (Verified 07/17/17 21:36) Home Medications: Ambulatory Orders Medication Instructions Recorded Levofloxacin [Levaquin] 750 mg PO DAILY #7 tab 07/15/17 Oxycodone HCl/Acetaminophen 1 tablet PO Q6H PRN PRN 07/17/17 [Percocet 5/325] Surgical History: no surgical history Psychiatric History: No pertinent psych hx FUR POLISHER History: No pertinent FUR POLISHER history Lives: With Family Smoking Status: Never smoker Alcohol: None Drugs: None - *Family History Maternal History Items: No pertinent history Paternal History Items: No pertinent history Review of Systems Comment: See HPI, otherwise negative ?10 systems. Patient Problems: Active and Suspected Problems Acute myocarditis (Suspected) cardiomyopathy (Suspected) Bilateral pleural effusion (Acute) Acute CHF (Acute) Objective: All imaging was personally reviewed. This did not show any significant emphysematous changes, or pleural effusions were noted. Chest x-ray and decubitus chest x-ray does show some mobile pleural fluid - Physical Exam General: Alert, Oriented x3, Cooperative, No apparent distress, Well developed, Well nourished, - - Speaking in full sentences. HEENT: Atraumatic, PERRLA, EOMI, Normocephalic, - - No scleral icterus or injection noted. Oral: Moist Mucosa, No Gingival or Mucosal Lesions/ Ulcerations Neck: Supple, No JVD, No Nodes, Trachea Midline Lungs: No rhonchi, No wheeze, No rales, Diminished - Left base, - - Symmetric expansion. No dullness to percussion. Cardiovascular: Regular rate, Regular Rhythm, Normal S1, Normal S2, No murmurs, No rub noted, No Gallop, - - Some tenderness to palpation over the left breast Abdomen: Bowel Sounds Present, Soft, Non Tender, Non-Distended, Obese Extremities: No clubbing, No cyanosis, No edema, Capillary Refill Less than 3 Seconds Skin: No rashes, No breakdown, - - No venous stasis changes or varicosities are appreciated. Musculoskeletal: No Tenderness to Palpation of Joints or Extremities, No Muscle Wasting Lymphatic: No Cervical, Supraclavicular, or Inguinal Adenopathy Neurological: Cranial nerves II-XII grossly intact, Neuro grossly intact, Motor Exam 5/5 strength throughout Psych/Mental Status: Alert and oriented to time, place, person, mood and affect Vital Signs Temp Pulse Resp BP Pulse Ox 36.7 C 62 15 101/57 L 98 07/19/17 11:14 07/19/17 11:14 07/19/17 11:14 07/19/17 11:14 07/19/17 11:14 Oxygen Flow Rate (L/min) 2 Oxygen Delivery Method Room Air Weight: 73 kg Body Mass Index (BMI) 31.1 Intake and Output for Last 24 Hours 07/17/17 07/18/17 07/19/17 23:59 23:59 23:59 Intake Total 720 / 720 150 / 150 Output Total 4650 / 4650 350 / 350 Balance -3930 / -3930 -200 / -200 Microbiology Past 72 Hours 07/18/17 07:45 Respiratory Panel (PCR) - Final Mucosa - Nasopharyngeal Laboratory Tests Past 24 Hrs 07/18/17 07/18/17 07/19/17 12:05 12:05 06:10 WBC 8.3 RBC 4.29 Hgb 11.6 L Hct 36.3 L MCV 84.6 MCH 27.0 MCHC 32.0 RDW 13.8 RDW Differential 42.2 Plt Count 325 MPV 9.8 Immature Gran % (Auto) 0.200 Neut % (Auto) 65.3 Lymph % (Auto) 21.5 Scurry % (Auto) 8.6 Eos % (Auto) 4.0 Baso % (Auto) 0.4 Absolute Neuts (auto) 5.4 Absolute Lymphs (auto) 1.78 Total Counted Not Reportable Sodium Potassium Chloride Carbon Dioxide Anion Gap BUN Creatinine Estim Creat Clear Calc Est GFR (MDRD) Af Amer Est GFR (MDRD) Non-Af BUN/Creatinine Ratio Glucose Calcium Troponin I < 0.02 MAVERICK Screen Pending RUSSEL-1 Antibody Pending SS-A/Ro IgG Antibody Pending SS-B/La IgG Antibody Pending Sm (Stearns) Antibody Pending APPLICATION SPECIALIST Antibody Pending Scl-70 Scleroderma Ab Pending Double Strand DNA Ab Pending Centromere B Antibody Pending 07/19/17 06:10 WBC RBC Hgb Hct MCV MCH MCHC RDW RDW Differential Plt Count MPV Immature Gran % (Auto) Neut % (Auto) Lymph % (Auto) Scurry % (Auto) Eos % (Auto) Baso % (Auto) Absolute Neuts (auto) Absolute Lymphs (auto) Total Counted Sodium 139 Potassium 3.8 Chloride 103 Carbon Dioxide 28.0 Anion Gap 8 BUN 20 H Creatinine 0.94 Estim Creat Clear Calc 71.44 Est GFR (MDRD) Af Amer 96 Est GFR (MDRD) Non-Af 79 BUN/Creatinine Ratio 21.2 H Glucose 86 Calcium 8.8 Troponin I MAVERICK Screen RUSSEL-1 Antibody SS-A/Ro IgG Antibody SS-B/La IgG Antibody Sm (Stearns) Antibody APPLICATION SPECIALIST Antibody Scl-70 Scleroderma Ab Double Strand DNA Ab Centromere B Antibody Clinical Impression(s) from Imaging Studies Chest X-Ray 07/17/17 22:11 IMPRESSION: Lower lung airspace disease. Bilateral effusion. Mild cardiomegaly. Electronically Signed: Jose Reed DO at 22:56 EDT , Service support , Chest CT 07/18/17 09:42 IMPRESSION: Small left pleural effusion with left lower lung compressive atelectasis. Smaller right pleural effusion. Electronically Signed: Jose Reed DO at 10:29 EDT , Service support , Chest X-Ray 07/19/17 05:20 IMPRESSION: No evidence of layering of fluid in the right hemithorax suggest the presence of free fluid Pleural findings may therefore be from pleural reaction or loculated effusion Electronically Signed: Tawanda Unger, at 9:12 EDT Tel , Service support , Assessment/Plan Active and Suspected Problems Acute myocarditis (Suspected) cardiomyopathy (Suspected) Bilateral pleural effusion (Acute) Acute CHF (Acute) RECOMMENDATIONS: 1. Complete antibiotic course 2. Continue with NSAIDs as needed 3. Repeat chest x-ray in 2-4 weeks 4. Follow-up in pulmonary office with nurse practitioner following x-ray IMPRESSIONS: 1. Shortness of breath with bilateral pleural effusions Patient appears to be responding well to current therapy. Clinical suspicion for parapneumonic effusion versus pleurisy. Stressed to the patient the importance of using NSAIDs to keep inflammation down. Patient does have a history of psoriasis, but not rheumatoid arthritis. Autoimmune workup has already been sent. High clinical suspicion that pleural effusions will resolve spontaneously. Patient can follow-up in our office in 2-4 weeks after chest x-ray. If pleural effusions persist, thoracentesis may be indicated for evaluation of transudate versus exudate. Autoimmune workup is already pending. Patient is not reporting any exposures that would be concerning for the development of pleural effusions. Patient denies any history of asthma or other underlying condition. Patient understands that the pain may persist on discharge for up to a week and appropriate therapy would be NSAIDs, not narcotics. Code Visit Inpatient E&M: 19692 Init Hosp L2
--- NOTE | 2017-07-19 11:40 | CON.PCM_ITS ---
Problem List (1) cardiomyopathy Status: Suspected (2) Bilateral pleural effusion Status: Acute (3) Acute CHF Status: Acute Reason for Consult Date of Consultation: 07/19/17 Reason for Consultation: Pleural effusions History of Present Illness: The patient is a 22 year old F, with past medical history listed below, who presented to [facility] on 07/18/2017 secondary to fever, headache and pleuritic type chest pain. Patient was 5 weeks at the time of presentation. At approximately 2 weeks , patient had reported a pleuritic type chest pain. This was not associated with orthopnea, but patient was having intermittent fever. Patient went to an urgent care center prior to her presentation here and was sent home on Percocet. Patient presented again 2 days later and a CTA showed a questionable left lower lobe infiltrate and patient was placed on Levaquin therapy. Patient presented again secondary to complaints of continued chest pain. Patient did require 2 L nasal cannula to maintain saturations. Patient was noted to be tachycardic and slightly anemic at 11.5 g/dL, but otherwise normal. Patient was admitted to the general medical floor for further evaluation. While admitted, patient did have an echocardiogram showing an EF of 55% without diastolic dysfunction or structural valve abnormalities. She has progressively improved over the course of the hospitalization and now feels close to baseline. However, patient's and family were very nervous about her going home and had requested a pulmonary consultation. Patient denies any previous pleural effusions. Patient does have a history of psoriasis, but denies any history of atopy, asthma or other lung disorder. Patient states that her was uncomplicated. Patient has not been hospitalized for breathing complications in the past. There is no family history of previous complications. Patient denies any trauma. Patient denies any tobacco, alcohol or drug exposure. Past Medical History Allergies No Known Allergies Allergy (Verified 07/17/17 21:36) Home Medications: Ambulatory Orders Medication Instructions Recorded Levofloxacin [Levaquin] 750 mg PO DAILY #7 tab 07/15/17 Oxycodone HCl/Acetaminophen 1 tablet PO Q6H PRN PRN 07/17/17 [Percocet 5/325] Surgical History: no surgical history Psychiatric History: No pertinent psych hx SET UP AND CHARGER History: No pertinent SET UP AND CHARGER history Lives: With Family Smoking Status: Never smoker Alcohol: None Drugs: None - *Family History Maternal History Items: No pertinent history Paternal History Items: No pertinent history Review of Systems Comment: See HPI, otherwise negative ?10 systems. Patient Problems: Active and Suspected Problems Acute myocarditis (Suspected) cardiomyopathy (Suspected) Bilateral pleural effusion (Acute) Acute CHF (Acute) Objective: All imaging was personally reviewed. This did not show any significant emphysematous changes, or pleural effusions were noted. Chest x-ray and decubitus chest x-ray does show some mobile pleural fluid - Physical Exam General: Alert, Oriented x3, Cooperative, No apparent distress, Well developed, Well nourished, - - Speaking in full sentences. HEENT: Atraumatic, PERRLA, EOMI, Normocephalic, - - No scleral icterus or injection noted. Oral: Moist Mucosa, No Gingival or Mucosal Lesions/ Ulcerations Neck: Supple, No JVD, No Nodes, Trachea Midline Lungs: No rhonchi, No wheeze, No rales, Diminished - Left base, - - Symmetric expansion. No dullness to percussion. Cardiovascular: Regular rate, Regular Rhythm, Normal S1, Normal S2, No murmurs, No rub noted, No Gallop, - - Some tenderness to palpation over the left breast Abdomen: Bowel Sounds Present, Soft, Non Tender, Non-Distended, Obese Extremities: No clubbing, No cyanosis, No edema, Capillary Refill Less than 3 Seconds Skin: No rashes, No breakdown, - - No venous stasis changes or varicosities are appreciated. Musculoskeletal: No Tenderness to Palpation of Joints or Extremities, No Muscle Wasting Lymphatic: No Cervical, Supraclavicular, or Inguinal Adenopathy Neurological: Cranial nerves II-XII grossly intact, Neuro grossly intact, Motor Exam 5/5 strength throughout Psych/Mental Status: Alert and oriented to time, place, person, mood and affect Vital Signs Temp Pulse Resp BP Pulse Ox 36.7 C 62 15 101/57 L 98 07/19/17 11:14 07/19/17 11:14 07/19/17 11:14 07/19/17 11:14 07/19/17 11:14 Oxygen Flow Rate (L/min) 2 Oxygen Delivery Method Room Air Weight: 73 kg Body Mass Index (BMI) 31.1 Intake and Output for Last 24 Hours 07/17/17 07/18/17 07/19/17 23:59 23:59 23:59 Intake Total 720 / 720 150 / 150 Output Total 4650 / 4650 350 / 350 Balance -3930 / -3930 -200 / -200 Microbiology Past 72 Hours 07/18/17 07:45 Respiratory Panel (PCR) - Final Mucosa - Nasopharyngeal Laboratory Tests Past 24 Hrs 07/18/17 07/18/17 07/19/17 12:05 12:05 06:10 WBC 8.3 RBC 4.29 Hgb 11.6 L Hct 36.3 L MCV 84.6 MCH 27.0 MCHC 32.0 RDW 13.8 RDW Differential 42.2 Plt Count 325 MPV 9.8 Immature Gran % (Auto) 0.200 Neut % (Auto) 65.3 Lymph % (Auto) 21.5 Hall % (Auto) 8.6 Eos % (Auto) 4.0 Baso % (Auto) 0.4 Absolute Neuts (auto) 5.4 Absolute Lymphs (auto) 1.78 Total Counted Not Reportable Sodium Potassium Chloride Carbon Dioxide Anion Gap BUN Creatinine Estim Creat Clear Calc Est GFR (MDRD) Af Amer Est GFR (MDRD) Non-Af BUN/Creatinine Ratio Glucose Calcium Troponin I < 0.02 MAVERICK Screen Pending RUSSEL-1 Antibody Pending SS-A/Ro IgG Antibody Pending SS-B/La IgG Antibody Pending Sm (Stearns) Antibody Pending ASSOCIATE PROFESSOR OF LITERATURE Antibody Pending Scl-70 Scleroderma Ab Pending Double Strand DNA Ab Pending Centromere B Antibody Pending 07/19/17 06:10 WBC RBC Hgb Hct MCV MCH MCHC RDW RDW Differential Plt Count MPV Immature Gran % (Auto) Neut % (Auto) Lymph % (Auto) Hall % (Auto) Eos % (Auto) Baso % (Auto) Absolute Neuts (auto) Absolute Lymphs (auto) Total Counted Sodium 139 Potassium 3.8 Chloride 103 Carbon Dioxide 28.0 Anion Gap 8 BUN 20 H Creatinine 0.94 Estim Creat Clear Calc 71.44 Est GFR (MDRD) Af Amer 96 Est GFR (MDRD) Non-Af 79 BUN/Creatinine Ratio 21.2 H Glucose 86 Calcium 8.8 Troponin I MAVERICK Screen RUSSEL-1 Antibody SS-A/Ro IgG Antibody SS-B/La IgG Antibody Sm (Stearns) Antibody ASSOCIATE PROFESSOR OF LITERATURE Antibody Scl-70 Scleroderma Ab Double Strand DNA Ab Centromere B Antibody Clinical Impression(s) from Imaging Studies Chest X-Ray 07/17/17 22:11 IMPRESSION: Lower lung airspace disease. Bilateral effusion. Mild cardiomegaly. Electronically Signed: Jose Reed DO at 22:56 EDT , Service support , Chest CT 07/18/17 09:42 IMPRESSION: Small left pleural effusion with left lower lung compressive atelectasis. Smaller right pleural effusion. Electronically Signed: Jose Reed DO at 10:29 EDT , Service support , Chest X-Ray 07/19/17 05:20 IMPRESSION: No evidence of layering of fluid in the right hemithorax suggest the presence of free fluid Pleural findings may therefore be from pleural reaction or loculated effusion Electronically Signed: Tawanda Unger, at 9:12 EDT Tel , Service support , Assessment/Plan Active and Suspected Problems Acute myocarditis (Suspected) cardiomyopathy (Suspected) Bilateral pleural effusion (Acute) Acute CHF (Acute) RECOMMENDATIONS: 1. Complete antibiotic course 2. Continue with NSAIDs as needed 3. Repeat chest x-ray in 2-4 weeks 4. Follow-up in pulmonary office with nurse practitioner following x-ray IMPRESSIONS: 1. Shortness of breath with bilateral pleural effusions Patient appears to be responding well to current therapy. Clinical suspicion for parapneumonic effusion versus pleurisy. Stressed to the patient the importance of using NSAIDs to keep inflammation down. Patient does have a history of psoriasis, but not rheumatoid arthritis. Autoimmune workup has already been sent. High clinical suspicion that pleural effusions will resolve spontaneously. Patient can follow-up in our office in 2-4 weeks after chest x- ray. If pleural effusions persist, thoracentesis may be indicated for evaluation of transudate versus exudate. Autoimmune workup is already pending. Patient is not reporting any exposures that would be concerning for the development of pleural effusions. Patient denies any history of asthma or other underlying condition. Patient understands that the pain may persist on discharge for up to a week and appropriate therapy would be NSAIDs, not narcotics. Code Visit Inpatient E&M: 29475 Init Hosp L2
--- NOTE | 2017-07-19 13:10 | PCM.DC ---
- Discharge Diagnoses Current Active Problems: Current Active and Chronic Problems Bilateral pleural effusion (Acute) Acute CHF (Acute) You will use the following diet at home:: No restrictions Your food should be the consistency of: Regular Your liquids should be the consistency of: Regular/Thin Discharge Activity: - - activity as tolerated Call your doctor if you observe: Fever of 101 or Higher, Shortness of breath, Dizziness, Fainting spells, Chest pain, Uncontrolled pain, - - Rash, diarrhea, vaginal discharge or itching, painful chewing or swallowing Additional Instructions: 1. You should continue to dump the breast milk until you are off the Levaquin. Finish all of the Levqaquin that you have. 2. I think the fevers and shortness of breath were due to pneumonia in the base of the left lung. You had no fevers while in the hospital. You are going to follow up with the nurse practitioner in Dr. Mota's office in 2 weeks and will get a repeat chest XRAY. Her name is Mable Castaneda. If you have recurrent fevers, increased shortness of breath or increasing chest pain call Dr. Mota's office and they will work you in sooner than 2 weeks. 3. I have given you a prescription for Ibuprofen.....this is safe if you are breast feeding and it is the preferred anti-inflamatory in women who are breast feeding. You will take it twice a day with food. 4. There is a group of rheumatologists that are located in [place] at the [facility] on [facility]. The phone number is [phone]. Pending Tests on Discharge: blood cultures Allergies/Adverse Reactions: Allergies No Known Allergies Allergy (Verified 07/17/17 21:36) Medications to take at Discharge Levofloxacin [Levaquin] 750 mg PO DAILY #7 tab 07/15/17 Oxycodone HCl/Acetaminophen [Percocet 5-325] 1 tablet PO Q6H PRN PRN 07/17/17 Ibuprofen 600 mg PO BID #60 tab 07/19/17 The following prescriptions were given: Ibuprofen 600 mg PO BID #60 tab Primary Care Physician: Sendy Ferraro DO [Primary Care Provider] - Please follow up with your Primary Care Physician in: 5-7 days Please Follow Up With: Drake Mota MD When: in 2 weeks with Mable Castaneda Please Follow Up With: [facility] When: [phone] Proposed Discharge Date: 07/19/17
--- NOTE | 2017-07-19 13:22 | DCINST_ITS ---
- Discharge Diagnoses Current Active Problems: Current Active and Chronic Problems Bilateral pleural effusion (Acute) Acute CHF (Acute) You will use the following diet at home:: No restrictions Your food should be the consistency of: Regular Your liquids should be the consistency of: Regular/Thin Discharge Activity: - - activity as tolerated Call your doctor if you observe: Fever of 101 or Higher, Shortness of breath, Dizziness, Fainting spells, Chest pain, Uncontrolled pain, - - Rash, diarrhea, vaginal discharge or itching, painful chewing or swallowing Additional Instructions: 1. You should continue to dump the breast milk until you are off the Levaquin. Finish all of the Levqaquin that you have. 2. I think the fevers and shortness of breath were due to pneumonia in the base of the left lung. You had no fevers while in the hospital. You are going to follow up with the nurse practitioner in Dr. Mota's office in 2 weeks and will get a repeat chest XRAY. Her name is Mable Castaneda. If you have recurrent fevers, increased shortness of breath or increasing chest pain call Dr. Mota's office and they will work you in sooner than 2 weeks. 3. I have given you a prescription for Ibuprofen.....this is safe if you are breast feeding and it is the preferred anti-inflamatory in women who are breast feeding. You will take it twice a day with food. 4. There is a group of rheumatologists that are located in [place] at the [facility] on [facility]. The phone number is [phone]. Pending Tests on Discharge: blood cultures Allergies/Adverse Reactions: Allergies No Known Allergies Allergy (Verified 07/17/17 21:36) Medications to take at Discharge Levofloxacin [Levaquin] 750 mg PO DAILY #7 tab 07/15/17 Oxycodone HCl/Acetaminophen [Percocet 5-325] 1 tablet PO Q6H PRN PRN 07/17/17 Ibuprofen 600 mg PO BID #60 tab 07/19/17 The following prescriptions were given: Ibuprofen 600 mg PO BID #60 tab Primary Care Physician: Sendy Ferraro DO [Primary Care Provider] - Please follow up with your Primary Care Physician in: 5-7 days Please Follow Up With: Drake Mota MD When: in 2 weeks with Mable Castaneda Please Follow Up With: [facility] When: [phone] Proposed Discharge Date: 07/19/17
--- NOTE | 2017-07-19 13:26 | PCM.DC.SUM ---
Discharge Date and Diagnosis - Problem List Patient Problems: Active and Suspected Problems Psoriatic arthritis (Suspected) Parapneumonic effusion (Suspected) CAP (community acquired pneumonia) (Acute) Bilateral pleural effusion (Acute) Date of Admission: 07/18/17 Date of Discharge: 07/19/17 - Primary Discharge Diagnosis Active and Suspected Problems CAP (community acquired pneumonia) (Acute) Bilateral pleural effusion (Acute) Parapneumonic effusion (Suspected) Psoriatic arthritis (Suspected) - Secondary Discharge Diagnosis Chronic Problems Psoriasis (Chronic) Hospital Course and Treatment Imaging Results: 07/19/17 05:20 Special CXR (Obl/Decub/A/L) [RAD] AM (NON MEDS) Clinical Impression(s) from Imaging Studies Chest X-Ray 07/17/17 22:11 IMPRESSION: Lower lung airspace disease. Bilateral effusion. Mild cardiomegaly. Electronically Signed: Jose Reed DO at 22:56 EDT , Service support , Chest CT 07/18/17 09:42 IMPRESSION: Small left pleural effusion with left lower lung compressive atelectasis. Smaller right pleural effusion. Electronically Signed: Jose Reed DO at 10:29 EDT , Service support , Chest X-Ray 07/19/17 05:20 IMPRESSION: No evidence of layering of fluid in the right hemithorax suggest the presence of free fluid Pleural findings may therefore be from pleural reaction or loculated effusion Electronically Signed: Tawanda Unger, at 9:12 EDT Tel , Service support , Dr. Zac Guerrero-[facility] Dr. Drake Mota-hand edge bander Operations: None Procedures: 2-D Echocardiogram Summary of Care Provided: Patient is a 22-year-old female with a PMH of psoriasis who is 5 weeks who presented to the emergency room at [facility] on 07/18/2017 with persistent complaints of headache, shortness of breath and left shoulder pain. The pain was aggravated by taking a deep breath. It was intermittent and sometimes sharp and sometimes dull. She had been having intermittent fevers. She denied cough. A CTA of the chest done on 07/15/2017 showed no pulmonary emboli, aneurysm or dissection. There was a small left pleural effusion and a questionable left lower lobe infiltrate. There was pericardial thickening. The WBC count was 14.3 with a left shift. She was discharged home from the ER with Levaquin 750 mg for 7 days. Vital signs in the emergency room on 07/18/17 were temperature 98.8, pulse rate 125, blood pressure 135/57, respiratory rate 20 and she was 96% saturated on room air. White blood cell count was 10.5 with 78% neutrophils. Hemoglobin and platelets were unremarkable. Electrolytes were within normal limits and the BUN was 14 with a creatinine of 1.1. ESR was 32 and a C-reactive protein was 131. BNP was 58 and TSH was 2.44. Serial cardiac enzymes were negative. Respiratory panel was negative. Chest x-ray in the emergency room showed bilateral pleural effusions with questionable infiltrates in the bases but no significant pulmonary vascular congestion. She was admitted to PCU and started on Lasix 40 BID. She was continued on Levaquin. Consult was ordered with Dr. Guerrero. ECHO was obtained and showed normal left ventricular size, normal left ventricular systolic function with an estimated ejection fraction of 55%. There were structurally normal valves and no pericardial effusion. Dr. Guerrero did not feel that the effusions were secondary to a cardiac etiology. A repeat CT scan of the chest without contrast was done on 07/18 and showed a small left pleural effusion with left lower lung compressive atelectasis vs infiltrate and a small right pleural effusion. A decubitus x-ray was done and there was no evidence of layering of the fluid.....I suspect this may either be pleural thickening/pleural reaction or possibly a loculated effusion. She looked much better in the afternoon on 07/18 after 3 doses of Levaquin and she denied SOB. She was kept in the hospital overnight and she remained afebrile. Dr. Mota was consulted and he agreed with the plan for discharge home and finishing Levaquin. He reassured the patient and the family that she did not need emergently transferred to another hospital and that DC home was appropriate. She will be seen in the pulmonary office in 2 weeks and will get a follow up CXR. At the time of discharge the temp was 98.1, blood pressure 101/57, heart rate 62, respiratory rate 15 and she was 98% saturated on room air. The white blood cell count was 8.3 with a normal differential. Hemoglobin was stable at 11.6 and platelets were within normal limits. RA was negative and MAVERICK is pending at the time of DC. she will follow up with Dr. Ferraro in 5-7 days. She has had psoriasis for a long time and frequently c/o joint pain and stiffness. She denies any joint erythema or swelling. I could not examine her nails for pitting because she has acrylic nails. She was referred to the [facility] in [place] for evaluation for psoriatic arthritis. She was given a RX for Ibuprofen and instructed to take 600 mg BID with food. 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 This note was generated with [employer] dictation software. It may contain incorrect words, spelling, and punctuation that were not noted in checking the note before signing. Discharge Activity: - - activity as tolerated Call your doctor if you observe: Fever of 101 or Higher, Shortness of breath, Dizziness, Fainting spells, Chest pain, Uncontrolled pain, - - Rash, diarrhea, vaginal discharge or itching, painful chewing or swallowing Home Medications: Medications to take at Discharge Levofloxacin [Levaquin] 750 mg PO DAILY #7 tab 07/15/17 Oxycodone HCl/Acetaminophen [Percocet 5-325] 1 tablet PO Q6H PRN PRN 07/17/17 Ibuprofen 600 mg PO BID #60 tab 07/19/17 Following Prescrptions Were Given to Patient: Ibuprofen 600 mg PO BID #60 tab Primary Care Physician: Sendy Ferraro DO [Primary Care Provider] - Please follow up with your Primary Care Physician in: 5-7 days Please Follow Up With: Drake Mota MD When: in 2 weeks with Mable Castaneda Please Follow Up With: [facility] When: [phone] Disposition: Home Minutes spent on discharge:: 40 Medical Necessity - Tobacco Use Smoking Status: Never smoker Meaningful Use Info Meaningful Use Diagnoses (Choose all that apply): None applicable Code Visit Inpatient E&M: 09366 Disch Hosp
--- NOTE | 2017-07-19 13:50 | DS.PCM_ITS ---
Discharge Date and Diagnosis - Problem List Patient Problems: Active and Suspected Problems Psoriatic arthritis (Suspected) Parapneumonic effusion (Suspected) CAP (community acquired pneumonia) (Acute) Bilateral pleural effusion (Acute) Date of Admission: 07/18/17 Date of Discharge: 07/19/17 - Primary Discharge Diagnosis Active and Suspected Problems CAP (community acquired pneumonia) (Acute) Bilateral pleural effusion (Acute) Parapneumonic effusion (Suspected) Psoriatic arthritis (Suspected) - Secondary Discharge Diagnosis Chronic Problems Psoriasis (Chronic) Hospital Course and Treatment Imaging Results: 07/19/17 05:20 Special CXR (Obl/Decub/A/L) [RAD] AM (NON MEDS) Clinical Impression(s) from Imaging Studies Chest X-Ray 07/17/17 22:11 IMPRESSION: Lower lung airspace disease. Bilateral effusion. Mild cardiomegaly. Electronically Signed: Jose Reed DO at 22:56 EDT , Service support , Chest CT 07/18/17 09:42 IMPRESSION: Small left pleural effusion with left lower lung compressive atelectasis. Smaller right pleural effusion. Electronically Signed: Jose Reed DO at 10:29 EDT , Service support , Chest X-Ray 07/19/17 05:20 IMPRESSION: No evidence of layering of fluid in the right hemithorax suggest the presence of free fluid Pleural findings may therefore be from pleural reaction or loculated effusion Electronically Signed: Tawanda Unger, at 9:12 EDT Tel , Service support , Dr. 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 The pain was aggravated by taking a deep breath. It was intermittent and sometimes sharp and sometimes dull. She had been having intermittent fevers. She denied cough. A CTA of the chest done on 07/15/2017 showed no pulmonary emboli, aneurysm or dissection. There was a small left pleural effusion and a questionable left lower lobe infiltrate. There was pericardial thickening. The WBC count was 14.3 with a left shift. She was discharged home from the ER with Levaquin 750 mg for 7 days. Vital signs in the emergency room on 07/18/17 were temperature 98.8, pulse rate 125, blood pressure 135/57, respiratory rate 20 and she was 96% saturated on room air. White blood cell count was 10.5 with 78% neutrophils. Hemoglobin and platelets were unremarkable. Electrolytes were within normal limits and the BUN was 14 with a creatinine of 1.1. ESR was 32 and a C-reactive protein was 131. BNP was 58 and TSH was 2.44. Serial cardiac enzymes were negative. Respiratory panel was negative. Chest x-ray in the emergency room showed bilateral pleural effusions with questionable infiltrates in the bases but no significant pulmonary vascular congestion. She was admitted to PCU and started on Lasix 40 BID. She was continued on Levaquin. Consult was ordered with Dr. Guerrero. ECHO was obtained and showed normal left ventricular size, normal left ventricular systolic function with an estimated ejection fraction of 55%. There were structurally normal valves and no pericardial effusion. Dr. Guerrero did not feel that the effusions were secondary to a cardiac etiology. A repeat CT scan of the chest without contrast was done on 07/18 and showed a small left pleural effusion with left lower lung compressive atelectasis vs infiltrate and a small right pleural effusion. A decubitus x-ray was done and there was no evidence of layering of the fluid.....I suspect this may either be pleural thickening/ pleural reaction or possibly a loculated effusion. She looked much better in the afternoon on 07/18 after 3 doses of Levaquin and she denied SOB. She was kept in the hospital overnight and she remained afebrile. Dr. Mota was consulted and he agreed with the plan for discharge home and finishing Levaquin. He reassured the patient and the family that she did not need emergently transferred to another hospital and that DC home was appropriate. She will be seen in the pulmonary office in 2 weeks and will get a follow up CXR. At the time of discharge the temp was 98.1, blood pressure 101/57, heart rate 62, respiratory rate 15 and she was 98% saturated on room air. The white blood cell count was 8.3 with a normal differential. Hemoglobin was stable at 11.6 and platelets were within normal limits. RA was negative and MAVERICK is pending at the time of DC. she will follow up with Dr. Ferraro in 5-7 days. She has had psoriasis for a long time and frequently c/o joint pain and stiffness. She denies any joint erythema or swelling. I could not examine her nails for pitting because she has acrylic nails. She was referred to the [facility] in [place] for evaluation for psoriatic arthritis. She was given a RX for Ibuprofen and instructed to take 600 mg BID with food. 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 This note was generated with [employer] dictation software. It may contain incorrect words, spelling, and punctuation that were not noted in checking the note before signing. Discharge Activity: - - activity as tolerated Call your doctor if you observe: Fever of 101 or Higher, Shortness of breath, Dizziness, Fainting spells, Chest pain, Uncontrolled pain, - - Rash, diarrhea, vaginal discharge or itching, painful chewing or swallowing Home Medications: Medications to take at Discharge Levofloxacin [Levaquin] 750 mg PO DAILY #7 tab 07/15/17 Oxycodone HCl/Acetaminophen [Percocet 5-325] 1 tablet PO Q6H PRN PRN 07/17/17 Ibuprofen 600 mg PO BID #60 tab 07/19/17 Following Prescrptions Were Given to Patient: Ibuprofen 600 mg PO BID #60 tab Primary Care Physician: Sendy Ferraro DO [Primary Care Provider] - Please follow up with your Primary Care Physician in: 5-7 days Please Follow Up With: Drake Mota MD When: in 2 weeks with Mable Castaneda Please Follow Up With: [facility] When: [phone] Disposition: Home Minutes spent on discharge:: 40 Medical Necessity - Tobacco Use Smoking Status: Never smoker Meaningful Use Info Meaningful Use Diagnoses (Choose all that apply): None applicable Code Visit Inpatient E&M: 70898 Disch Hosp
[2017-07-21 11:08] LABS: ANTINUCLEAR ANTIBODIES DIRECT Negative (Negative)
== END 2017-07-19 14:25 | disposition home or self-care (01) | DRG 193 ==
LOC: ED 22:28 → PCU 07-18 01:00
PROVIDERS: Admitting Provider Hospitalist; Emergency Provider Emergency Medicine; Family Provider Family Medicine; PCP Family Medicine; Visit Provider Internal Medicine
DX: J18.9 Pneumonia, unspecified organism (principal); O90.3 Peripartum cardiomyopathy; I50.21 Acute systolic (congestive) heart failure; I40.9 Acute myocarditis, unspecified; J91.8 Pleural effusion in other conditions classified elsewhere; L40.50 Arthropathic psoriasis, unspecified; M06.9 Rheumatoid arthritis, unspecified; D64.9 Anemia, unspecified
CPT/HCPCS: 36415; 71046; 71250; 80048; 80076; 83605; 83735; 83880; 84443; 84484; 85025; 85379; 85610; 85652; 86038; 86140; 86225; 86235; 86431; 87040; 87633; 93005; 93306; 97802; 99283; J7030; A4216; J1940

== ENCOUNTER → 2017-08-04 08:27 | Outpatient (CLI) | payer OTHER, SELFPAY ==
--- NOTE | 2017-08-04 08:40 | RAD_ITS ---
STUDY: X-RAY CHEST REASON FOR EXAM: Female, 22 years old. Pneumonia 2 weeks ago. TECHNIQUE: Frontal and lateral views of the chest. COMPARISON: July 17, 2017. FINDINGS: The lungs are clear and expanded. There is no demonstrated pleural abnormality. Normal size heart. Normal mediastinum and kt. Normal visualized pulmonary arteries. Normal visualized aortic arch and descending thoracic aorta. Normal visualized thoracic spine. Normal visualized ribs, clavicles, and shoulders. There is no demonstrated abnormality of the visualized soft tissue structures of the upper abdomen. RAD/Chest PA and Lateral IMPRESSION: Normal x-ray examination of the chest. Electronically Signed: Walter Palma MD at 9:05 EDT , Service support ,
[2017-08-04 09:41] LABS: CRP 2.91 mg/L (0.0-3.0)
[2017-08-06 12:55] LABS: Cytoplasmic Ab (C-ANCA) <1:20 titer (Neg:<1:20); Perinuclear Ab (P-ANCA) <1:20 titer (Neg:<1:20)
== END ==
PROVIDERS: Family Provider Family Medicine; PCP Family Medicine; Visit Provider Nurse Practitioner Acute Care
DX: R07.81 Pleurodynia (principal)
CPT/HCPCS: 36415; 71046; 86140; 86256

== ENCOUNTER → 2018-02-16 14:22 | Outpatient (CLI) | payer OTHER, SELFPAY ==
[2018-02-24 13:26] LABS: HPV Reflexed? NOT INDICATED
== END ==
PROVIDERS: Visit Provider Obstetrics & Gynecology
DX: Z12.4 Encounter for screening for malignant neoplasm of cervix (principal)
CPT/HCPCS: 88175; G0145

== ENCOUNTER → 2018-09-14 | Outpatient (CLI) | payer OTHER, SELFPAY ==
[2017-09-30 06:12] VITALS: BMI 29.2
[2018-09-14 19:54] LABS: Chlamydia Trachomatis by PCR Negative (Negative); Neisserai gonorrhoeae by PCR Negative (Negative); Probe Check PASS; Sample Adequacy Control PASS; Specimen Processing Control PASS
[2018-09-17 10:49] LABS: HPV Reflexed? NOT INDICATED
== END | disposition home or self-care (01) ==
LOC: LABSPEC 17:03
PROVIDERS: Visit Provider Obstetrics & Gynecology
DX: Z12.4 Encounter for screening for malignant neoplasm of cervix (principal); Z11.3 Encounter for screening for infections with a predominantly sexual mode of transmission
CPT/HCPCS: 87491; 87591; 88175; G0145

== ENCOUNTER → 2018-10-04 | Outpatient (CLI) | payer OTHER, SELFPAY ==
[2017-09-30 06:12] VITALS: BMI 29.2
[2018-10-04 15:44] LABS: Color, Urine Yellow (Yellow); Glucose, Dipstick Normal (Normal); Ketone-Dipstick 50 mg/dl (Negative); Leukocyte Esterase-Dipstick Negative /ul (Negative); Nitrite-Dipstick Negative (Negative); Occult Blood-Urine Negative /ul (Negative); Protein-Dipstick Negative (Negative); Urine Bilirubin Dipstick Negative (Negative); Urine Clarity Clear (Clear); Urine Urobilinogen Normal (Normal)
[2018-10-04 15:47] LABS: Absolute Lymphocyte Count 1.57 X10^3/ul (0.83-4.51); Absolute Neutrophil Count 10.1 X10^3/uL (2.0-7.7); Basophil# 0.02 X10^3/uL; Basophil% 0.2 % (0-1); Eosinophil# 0.05 X10^3/uL; Eosinophils% 0.4 % (0-5); Hematocrit 37.9 % (37-47); Hemoglobin 13.1 g/dl (12.0-15.0); Lymphocyte # 1.57 X10^3/ul (4.0); Lymphocyte % 12.4 % (19-41); Mean Corp Hgb Conc 34.6 g/gl (32-36); Mean Corpuscular Hgb 29.4 pg (27.0-32.0); Mean Platelet Vol. 10.6 fl (6.2-12.0); Monocyte# 0.84 X10^3/uL; Monocyte% 6.6 % (0-10); Neutrophil # 10.13 X10^3/uL (2.7-7.7); Neutrophil % 80.1 % (47-70); Platelet Count 204 K/mm3 (150-450); RBC Distribution Width CV 12.8 % (11.6-14.6); RBC Distribution Width SD 38.8 fl (35.1-43.9); Red Blood Count 4.46 M/mm3 (4.2-5.4); White Blood Count 12.7 K/mm3 (4.4-11.0)
[2018-10-04 15:49] LABS: POSITIVE COUNT NO; POSITIVE DIFFERENTIAL NO; POSITIVE MORPHOLOGY NO
[2018-10-04 16:16] LABS: Thyroid Stim Hormone (TSH) 0.98 uIU/mL (0.358-3.74)
[2018-10-05 09:23] LABS: HIV - WCH Non-Reactive (Nonreactive); Hepatitis B Surface Antigen Non-Reactive (Nonreactive); Hepatitis C Antibody Non-Reactive (Nonreactive); Rubella IgG 29.2 IU/mL
[2018-10-08 01:18] LABS: Prenatal RPR NONREACTIVE (NONREACTIVE)
[2018-10-08 12:57] LABS: V-Zoster IgG (Immunity) 625 index (Immune >165)
== END | disposition home or self-care (01) ==
LOC: WOBLAB 15:07
PROVIDERS: Visit Provider Obstetrics & Gynecology
DX: Z34.82 Encounter for supervision of other normal pregnancy, second trimester (principal)
CPT/HCPCS: 36415; 81002; 84443; 85025; 86703; 86762; 86787; 86803; 87340

== ENCOUNTER → 2018-11-01 | Outpatient (CLI) | payer OTHER, SELFPAY ==
[2017-09-30 06:12] VITALS: BMI 29.2
[2018-11-01 17:15] LABS: Hematocrit 37.1 % (37-47); Hemoglobin 12.3 g/dL (12.0-15.0); Mean Corp Hgb Conc 33.2 g/dL (32-36); Mean Corpuscular Hgb 29.6 pg (27.0-32.0); Mean Corpuscular Volume 89.4 fL (81-99); Mean Platelet Vol. 11.2 fl (6.2-12.0); Platelet Count 196 K/mm3 (150-450); Red Blood Count 4.15 M/mm3 (4.2-5.4); White Blood Count 14.3 K/mm3 (4.4-11.0)
[2018-11-01 17:18] LABS: Glucose Challenge Gest 1H 50g 100 mg/dL (70-140)
== END | disposition home or self-care (01) ==
LOC: WOBLAB 14:05
PROVIDERS: Visit Provider Obstetrics & Gynecology
DX: Z34.83 Encounter for supervision of other normal pregnancy, third trimester (principal)
CPT/HCPCS: 36415; 82950; 85027

== ENCOUNTER → 2018-12-27 13:30 | Outpatient (CLI) | payer OTHER, SELFPAY ==
[2017-09-30 06:12] VITALS: BMI 29.2
== END ==
PROVIDERS: Visit Provider Obstetrics & Gynecology
DX: Z36.85 Encounter for antenatal screening for Streptococcus B (principal)
CPT/HCPCS: 87081

== ENCOUNTER 2019-01-25 06:15 | Inpatient (IN) | payer OTHER, SELFPAY ==
[2017-09-30 06:12] VITALS: BMI 29.2
[2019-01-25] MEDS: 0.9% Saline Lock 10 ML Syringe IV (07:00)
[2019-01-25 07:07] VITALS: BMI 35.4
[2019-01-25 07:23] LABS: Absolute Lymphocyte Count 1.45 X10^3/uL (0.83-4.51); Absolute Neutrophil Count 13.2 X10^3/uL (2.0-7.7); Basophil# 0.07 X10^3/uL; Basophil% 0.4 % (0-1); Eosinophil# 0.15 X10^3/uL; Eosinophils% 0.9 % (0-5); Hematocrit 40.1 % (37-47); Hemoglobin 13.2 g/dL (12.0-15.0); Lymphocyte # 1.45 X10^3/ul (4.0); Mean Corp Hgb Conc 32.9 g/dL (32-36); Mean Platelet Vol. 11.1 fl (6.2-12.0); Monocyte# 1.18 X10^3/uL; Monocyte% 7.3 % (0-10); NRBC Flagged by Analyzer 0 % (0-5); Neutrophil % 81.5 % (47-70); Platelet Count 196 K/mm3 (150-450); RBC Distribution Width CV 12.9 % (11.6-14.6); Red Blood Count 4.72 M/mm3 (4.2-5.4); White Blood Count 16.2 K/mm3 (4.4-11.0)
--- NOTE | 2019-01-25 08:13 | PCM.HP.BLA ---
History and Physical Date of Admission: 01/25/19 [facility] [place] - HISTORY AND PHYSICAL (01/25/2019) Name: JOVANNA MCKNIGHT OB Physician: MELISSA Goltry's Physician: Dr Kaiser ...................................................................... : 1995 Age: 23 Address: [address] [place] [address] Phone: (h) [phone] (O) [phone] Insurance Carrier: [employer] [id number] Emergency Contact: GEN MERCADO/BLAIR ...................................................................... Final ARIANA: 01/21/19 By Ultrasound: 21 weeks 4 days This is a 23 yo at 40w4d gestation by 21w4d US admitted in active labor; she reports painful contractions that she is able to manage effectively with breathing, movement, etc; she states that she wants to labor as natural as possible, and would like to avoid pitocin. PARITY: (G-Total Pregnancies P-Fullterm,Premature,Induced AB,Spont AB, Ectopics, Multiple,Living) ARIANA CONFIRMATION: By LMP: 02/16/18 By First Ultrasound Exam: 01/21/19 Final ARIANA: 01/21/19 BLOOD TYPE: AFP: 1 HR PG: GBS: Original Ordering Provider: Ingris Camp DANYELL Culture Group B Beta Streptococcus is not isolated. Original Ordering Provider: Ingris Camp Comments: VAGINAL/RECTAL DANYELL Culture Group B Beta Streptococcus is not isolated. Rublla titer (>10 immune)-- Hepatatis B markel AG-- CULTURES:-- OB PROBLEM LIST: Declines CF and AFP. Pt has a cousin with Autism Unknown immunity to chickenpox. IgG POSITIVE. IMMUNE ALLERGIES: No Known Allergies MEDICATIONS: + DHA 28 mg iron-975 mcg-200 mg oral pack daily promethazine 12.5 mg tablet As Directed 1 tab po Q 4 hours PRN nausea SOCIAL HISTORY: Smoking - Never Alcohol Use - RARELY not while Diet - balanced Diet, caffeine < 2 drinks per day and Water intake tries for 60 oz daily. 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 Drug Use - None Sexual Activity - ACTIVE ONE PARTNER Residence - Lives with [facility] Place of - [place], [place] Hours Worked - variable Spouse-Sig Other Name - Gen Mercado ([facility]) Spouse-Sig Other Occupation - SEFERINO Spouse-Sig Other Phone No - [phone] Children Name(s) - Eileen PRIOR DELIVERY HISTORY DEL DATE GEST LAB WT LB WT OZ TYPE ANES LABOR TX 28 Feb 18 40 11 8 6 Vag Local No ANTEPARTUM FLOW CHART VISIT GE RTC FU F F NC U U DATE WK MD WKS HT PN HR M SS BP ED WT NC GL D EF ST __ ____ ___ __ __ ___ __ __ __ ___ __ __ __ ___ __ 14 Jan ELB .5 34 V + + 96/58 tr 186 - - 1 25 -2 10 Jan 39 + + 102/60 0 187 tr - 07 Jan ELB 1 35 V U+ + 112/70 sl 185 tr - 04 Jan 39 ELB 1 34 V + + 100/64 0 183 tr - 1 50 -2 27 Sep 38 ELB 1 34 V + + 120/80 0 180 cl P 16 Sep 36 ELB 1 32 V + + 90/70 0 178 tr - cl -2 09 Sep 35 ELB 1 34 V + + 110/64 175 tr - Nov SHM 2 33 + 90/70 0 172 tr - 12 Dec 11 ELB 2 31 - + + 110/74 0 167 tr - Nov 07 JMW 3 28 + + 114/66 0 164 - - 24 Oct 04 ELB 4 24 - U+ + 110/72 0 151 tr - ANTEPARTUM NOTE(S): Jan 24 2019: Jan 20 2019: Feels well Jan 17 2019: AGA HAMLET 7.1cm BPP /8 Jan 14 2019: Reviewed FM, SROM, and labor Jan 07 2019: feeling well. Cervix check. Dec 27 2018: feeling well. GBS and LARC today. Dec 20 2018: Reviewed FM, SROM, labor, GBS next week Dec 06 2019: feeling well. Nov 22 2018: some discomfort with sitting for long periods Nov 01 2018: CBC,OGCT Today,Good FM,Feeling Well Oct 04 2018: glucola given COMPREHENSIVE ANTEPARTUM NOTE(S): Jan 24 2019: Reporting irregular UC. FM+. S<D getting biweekly NST. NST reactive today. Will repeat . Offered and performed membrane sweep today. 05/07/2. Instructed spotting may be normal, but to call for gush of fluids, bleeding or regular UC. - CH Jan 24 2019: Reviewed induction of labor at 41 wk if undelivered. Having irreg and not painful UCs. EB Jan 20 2019: Jovanna is here for her NST at 39 w 6 d. She states that she is feeling well, and reports good FM. She had some cramping yesterday morning, but none since. Denies spotting/leaking fluid. NST/EEFM explained. NST reactive, read per Dr. Camp. AW Jan 14 2019: Growth sono at next PNV. Jan 14 2019: Feeling well; reports active FM; denies UCs, VB, LOF; size < dates, previous growth scan was AGA; cervix 1/50/-2, soft, mid position; pt declines IOL, hoping for spontaneous labor and unmedicated biirth; discussed warning signs, s/s Labor, when to call/come in; RTO Thursday01/17/2019 for growth scan, PNV - KVW Jan 07 2019: Sono 12/27/18 Amniotic fluid: Normal and 10.7 cm EFW 2712 gms EFW 30.8 pct EFW 6lb 0oz lbs EB Dec 29 2018: Group B strep NEG. EB Dec 29 2018: H taken to OB. tkg Dec 27 2018: DECLINES LARC. consent signed. GBS today RTO in 1 wk for PNV EB Dec 06 2018: Feeling well; reports active FM; VB, LOF; discussed warning signs, s/s PTL; RTO 2 weeks for PNV; GBS swab at next visit Nov 22 2018: Reviewed FM, PTL, and discomforts. Sitting more and feeling like baby is up so high. She is pretty short and this may have more to do with that feeling but can try upright position more often than sitting. This may improve a little when baby descends further down into pelvis? LMT Nov 22 2018: Hgb 12.3 g/dl. Glucola 100. EB Oct 05 2018: A positive RI. EB Oct 04 2018: Repeating sono to confirm interval growth and same EDC Late PNC. Glucola and CBC next visit. EB Hgb 13.1 g/dl. EB Oct 04 2018: Jovanna is here for NOB nurse visit with late care with ARIANA 01-21-19 planning a vag del at [facility]. probably without an epidural, using Dr Kaiser at [facility] for post disch ped care and to breastfeed. She nursed their first baby over one year. Gen GONZALEZ accompanied her today with their tired toddler but took her out shortly. 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 Gen works at [employer]. They are happy about the pg. Kristi has NKA to meds, food. latex or the environment. Her diet is balanced w one cup of coffee daily and about 60 oz of water. Enc to increase water to closer to one gal as she can. Importance of protein in her diet discussed. She is a lifetime non smoker, denies street drug or alcohol use. Genetics Screening form completed noting a cousin with mild autism. She declines CF testing and is too late for AFP. Warning signs in pg reviewed as well as reaching office after hours, lifting restrictions of 25#, OTC meds ok to take and wearing seatbelt very low on her abdomen. She voices understanding. She is unsure if she ever had chickenpox. Routine labs with Varicella IgG drawn today. She was hospitalized with pneumonia at two months PP x 4 days. She's had UTIs. They still have a copy of What to Expect. Enc to call w any concerns. Visit lasted 35 min. Michelle CARTAGENA. NEW Sep 15 2018: Cervical cultures NEG EB Sep 14 2018: Here for appt to establish care for She has h/o vaginal delivery and then returned to [facility] approx 5 + wk after and uncomplicated with pleuritic chest pain and was found to have LLQ pneumonia and Bilatral pleural effusions. Workup for cardiomyopathy was negative. 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 She is set up to see blueprint tracer Sep 14 2018: Jovanna is being seen for missed menses appt. UPT in office is positive. Pt is unsure of LMP due stopping about 2 months ago and no periods. Pt has started . Medications and allergies are up to date. Pap and cultures today. Pt has no new concerns. AM Mar 01 2018: Katie is here for evaluation of vaginal odor with occ discharge. This has been going on since her delivery 9 months ago. LMT Feb 16 2018: Here for annual. Pap and cultures due. Had work up last year for possible connective tissue disorder after pleural effusion post vaginal delivery. ? (fluid overload?) EB Feb 16 2018: Katie is here for annual exam. Relates menses is monthly and regular. She relates since having her daughter she has had a vaginal odor that she cannot get rid of. She does take Probiotic that she does not feel has made much difference. No change with odor at any point in her cycle. She is on menses today and wet prep not very likely to be helpful today. Offered vaginitis swab and she declines at this time. Will come back for evaluation of this when not on menses. Pap is planned today. LMT REVIEW OF SYSTEMS: GENERAL - Denies fever, or chills SKIN - Denies rash, new skin lesions, or change in moles EYES - Denies blurred vision, or change in visual acuity EARS - Denies ear pain, or difficulty hearing NOSE - Denies nasal congestion, discharge, or bleeding MOUTH - Denies sore throat, or difficulty swallowing NECK - Denies pain or swelling RESPIRATORY - Denies shortness of breath, cough, wheezing CARDIOVASCULAR - Denies palpitations, chest pain, orthopnea, PND, peripheral edema, syncope or claudication GASTROINTESTINAL - Denies nausea, vomiting, diarrhea, constipation, Denies abdominal pain, melena and or bright red blood GENITOURINARY - Denies dysuria, frequency of urination, urgency, or hesitancy MUSCULOSKELETAL - Denies joint or muscle pain, or back pain NEUROLOGICAL - Denies localized numbness, weakness, or tingling PSYCHIATRIC - Denies depression, anxiety, substance abuse or suicide attempts ENDOCRINE - Denies heat or cold intolerance, weight loss or gain, increasing thirst HEMATO-IMMUNOLOGIC - Denies easy bruising, bleeding, oral ulcerations or recurrent infections GENETICS SCREENING: Age 35+ years: No Thalassemia: No Neural Tube Defect: No Down Syndrome: No TIM-SACHS: No Sickle Cell Disease: No Hemophilia: No Musc. Dystrophy: No Cystic Fibrosis: No-declines screening Bi Chorea: No Mental Retardation: No Fragile X: No Other genetic: No Other defects: No SABs/still births: No Drugs since LMP: No Comments: Cousin with Autism INFECTION HISTORY: High risk AIDS: No High risk Hepatitis: No Exposed to TB: No Exposed to Herpes: No Rash/viral illness since LMP: No History of STD: No MENSTRUAL HISTORY: *Menses Amount/Duration: 4 daysMenses Regularity: RegularMenarche (Age Onset): 13* PAST SUMMARY: PARITY: 1. Total Pregnancies............ 2 2. Full Term Pregnancies........ 1 3. Premature.................... 0 4. Abortions - Induced.......... 0 5. Abortions - Spontaneous...... 0 6. Ectopics..................... 0 7. Multiple Births.............. 0 8. Living Children.............. 1 PAST #1: Date of :.................. 06/10/17 Gestation Weeks:................ 40 Length of labor(hours):......... 11 Sex:............................ F Weight-lbs:............... 8 Weight-oz:................ 6 Type of Delivery:............... Vag Type of Anesthesia:............. Local Place of Delivery:.............. [place] Treatment of Labor?:.... No Comment: NO Labs for : JOVANNA MCKNIGHT since 04/26/2018 ORDER DATEIN DESCRIPTION VALUE UNITS RANGE A+ COMMENT TYPE AND SCREEN 01/25/19 Reason for Type AND Screen/Red Cells: [facility]~[address] [place], [address]~ BLOOD TYPE GEL A POSITIVE N ANTIBODY SCREEN NEGATIVE N CBC W/DIFF, AUTOMATED 01/25/19 NOTE Original Ordering Provider: Pili Mckeon WBC 16.2 K/mm3 4.4-11.0 H RBC 4.72 M/mm3 4.2-5.4 HGB 13.2 g/dL 12.0-15.0 HCT 40.1 % 37-47 MCV 85.0 fL 81-99 MCH 28.0 pg 27.0-32.0 MCHC 32.9 g/dL 32-36 RDW CV 12.9 % 11.6-14.6 RDW SD 40.0 fl 35.1-43.9 PLT 196 K/mm3 150-450 MPV 11.1 fl 6.2-12.0 NEUT% 81.5 % 47-70 H LY% 9.0 % 19-41 L MONO% 7.3 % 0-10 EO% 0.9 % 0-5 BASO% 0.4 % 0-1 IM GRAN % 0.900 % 0.0-0.9 IG% - Immature Granulocytes (promyelocytes, myelocytes and metamyelocytes) > 1% indicates that a LEFT SHIFT is Present. ABSOLUTE NEUT 13.2 X10 3/uL 2.0-7.7 H ABSOLUTE LYMPH 1.45 X10 3/uL 0.83-4.51 NRBC, FLAGGED 0 % 0-5 CULTURE, GROUP B STREPTOCOCCUS 12/27/18 NOTE Original Ordering Provider: Ingris Camp Comments: VAGINAL/RECTAL DANYELL Culture Group B Beta Streptococcus is not isolated. Reviewed by INGRIS Reviewed by INGRIS GLUCOSE CHALLENGE GEST 1H 50G 11/01/18 NOTE Original Ordering Provider: Pili Mckeon GLU GEST 50G 1H 100 mg/dL 70-140 Reviewed by PILI CBC-COMPLETE BLOOD CNT NO DIFF 11/01/18 NOTE Original Ordering Provider: Pili Mckeon WBC 14.3 K/mm3 4.4-11.0 H RBC 4.15 M/mm3 4.2-5.4 L HGB 12.3 g/dL 12.0-15.0 HCT 37.1 % 37-47 MCV 89.4 fL 81-99 MCH 29.6 pg 27.0-32.0 MCHC 33.2 g/dL 32-36 RDW CV 13.0 % 11.6-14.6 RDW SD 42.0 fl 35.1-43.9 PLT 196 K/mm3 150-450 MPV 11.2 fl 6.2-12.0 Reviewed by PILI V-ZOSTER IGG (IMMUNITY) 10/04/18 NOTE Original Ordering Provider: Ingris Camp VZOST IGG [id number] index Immune >165 Negative <135 Equivocal 135 - 165 Positive >165 A positive result generally indicates exposure to the pathogen or administration of specific immunoglobulins, but it is not indication of active infection or stage of disease. Performed at: [address] [id number] Auditing Clerk: Brandon Garduno PhD, Phone: [phone] Reviewed by INGRIS RPR 10/04/18 NOTE Original Ordering Provider: Ingris Camp RPR NONREACTIVE NONREACTIVE Reviewed by INGRIS HEPATITIS C ANTIBODY 10/04/18 NOTE Original Ordering Provider: Ingris Camp HEPATITIS C AB Non-Reactive Nonreactive Non Reactive: < 0.8 Equivocal: >/= 0.8 to < 1.0 Reactive: >/= 1.0 The CDC recommends that a reactive/equivocal HCV antibody result be followed up by the HCV Nucleic Acid Amplification test ([id number]) Reviewed by INGRIS HEPATITIS B SURFACE ANTIGEN 10/04/18 NOTE Original Ordering Provider: Ingris Camp HEPB SURFACE AG Non-Reactive Nonreactive Reviewed by INGRIS HIV - [facility] 10/04/18 NOTE Original Ordering Provider: Ingris Camp HIV - [facility] Non-Reactive Nonreactive Reviewed by INGRIS RUBELLA IGG 10/04/18 NOTE Original Ordering Provider: Ingris Camp RUBELLA IGG 29.2 IU/mL Antibody results Interpretation of Immune Status < 5 IU/ml Presumed Non-immune 5 - < 10 IU/ml Equivocal > or = 10 IU/ml Presumed Immune Reviewed by INGRIS T AND S-NO CHARGE W/PNP 10/04/18 Reason for Type AND Screen/Red Cells: Surgery? N [facility]~[address] [place], [address]~ BLOOD TYPE GEL A POSITIVE N AB SCREEN GEL NEGATIVE N Reviewed by INGRIS THYROID STIM HORMONE (TSH) 10/04/18 NOTE Original Ordering Provider: Ingris Camp TSH 0.98 uIU/mL 0.358-3.74 Reviewed by INGRIS CBC W/DIFF, AUTOMATED 10/04/18 NOTE Original Ordering Provider: Ingris Camp WBC 12.7 K/mm3 4.4-11.0 H RBC 4.46 M/mm3 4.2-5.4 HGB 13.1 g/dl 12.0-15.0 HCT 37.9 % 37-47 MCV 85.0 fL 81-99 MCH 29.4 pg 27.0-32.0 MCHC 34.6 g/gl 32-36 RDW CV 12.8 % 11.6-14.6 RDW SD 38.8 fl 35.1-43.9 PLT 204 K/mm3 150-450 MPV 10.6 fl 6.2-12.0 NEUT% 80.1 % 47-70 H LY% 12.4 % 19-41 L MONO% 6.6 % 0-10 EO% 0.4 % 0-5 BASO% 0.2 % 0-1 IM GRAN % 0.300 % 0.0-0.9 IG% - Immature Granulocytes (promyelocytes, myelocytes and metamyelocytes) > 1% indicates that a LEFT SHIFT is Present. ABSOLUTE NEUT 10.1 X10 3/uL 2.0-7.7 H ABSOLUTE LYMPH 1.57 X10 3/ul 0.83-4.51 Reviewed by INGRIS URINALYSIS, ROUTINE (DIPSTICK) 10/04/18 NOTE Original Ordering Provider: Ingris Camp COLOR Yellow Yellow CLARITY Clear Clear GLUCOSE, UR Normal mg/dl Normal BILIRUBIN URINE Negative mg/dL Negative KETONE UR 50 mg/dl Negative H SP.GR. DIPSTX 1.010 1.002-1.030 PH UR 8.0 5.0 - 8.0 PROT DIPSTX Negative mg/dl Negative UROBILI Normal mg/dl Normal NITRITE UR Negative Negative OCCULT BLOOD-UR Negative /ul Negative LEUK ESTERASE Negative /ul Negative Reviewed by INGRIS URINE DRUG SCREEN (VISTA) 10/04/18 NOTE Original Ordering Provider: Ingris Camp TO BE CONFIRMED CONFIRMATORY TESTING FOR ALL POSITIVE URINE DRUG SCREEN RESULTS WILL ONLY BE SENT OUT UPON PHYSICIAN ORDER. VISTA Urine Drug Screen methods provide only preliminary analytical test results. A more specific alternate chemical method must be used in order to obtain a confirmed analytical result. Gas chromatography/mass spectrometery (GC/MS) is the preferred confirmatory method. Clinical consideration and professional judgement should be applied to any drug of abuse test result, particularly when preliminary positive results are used. URINE TCA TESTING MUST BE ORDERED SEPARATELY. USE TEST MNEMONIC: UTCA Reviewed by INGRIS PAP I-G W/RFX HRHPV 09/14/18 NOTE Original Ordering Provider: Ingris Camp DIAGN . NEGATIVE FOR INTRAEPITHELIAL LESION OR MALIGNANCY. ADEQ . Satisfactory for evaluation. No endocervical component is identified. An endocervical component is not commonly seen in the patient. PERFORM . Fay Turner, Land Inspector (ASCP) TEST METHOD . This liquid based ThinPrep(R) pap test was screened with the use of an image guided system. COMM . . PAPSMR . The Pap smear is a screening test designed to aid in the detection of premalignant and malignant conditions of the uterine cervix. It is not a diagnostic procedure and should not be used as the sole means of detecting cervical cancer. Both false-positive and false-negative reports do occur. HPV RFLX . The HPV DNA reflex criteria were not met with this specimen result therefore, no HPV testing was performed. Performed at: [address], [place] [id number] Auditing Clerk: Mary Bobby MD, Phone: [phone] Reviewed by INGRIS CHAMORRO/LISETTE [facility] BY PCR 09/14/18 NOTE Original Ordering Provider: Ingris Camp CHLAM TRAC PCR Negative Negative NG BY PCR Negative Negative Reviewed by INGRIS PROVIDER SIGNATURE ( REQUIRED) PHYSICAL EXAMINATION General Appearence: 23 yo female in no acute distress Vital Signs: AF, VSS Heart: RRR without rubs or gallops Lungs: CTA x 2 Breasts: deferred Abdomen: gravid Pelvis: Cervix: 6/0/-3 at 0644 per RN Presentation: cephalic Fetus: Size: AGA Movement: present FHTs: 125 baseline, moderate variability, with accels, occasional early decels on admission; currently 135bpm by intermittent auscultation, accels noted, no decels noted UCs: Q 3-7 minutes on admission; currently 4-5 minutes apart, palpating moderate Impression: 23yo at 40w4d gestation by L= Active spontaneous labor. coping well GBS negative Membranes intact Cat 1 FHTs Plan: Admit to inpatient Continuous EFM or Intermittent Auscultation per standard of care Expectant management, will recheck cervix at 1400, PRN or at patient request Anticipate vaginal
--- NOTE | 2019-01-25 12:59 | PN.OBGYN_ITS ---
Subjective: Coping well per RN report; contractions have spaced out, but patient requesting to avoid pitocin if possible,would prefer to augment labor by AROM if needed Objective: AVSS FHTs: 130 via intermittent auscultation per RN, accels noted, no decels UCs: Q8 minutes per RN, palpate moderate - Physical Exam Weight: 187 lb 8 oz Body Mass Index (BMI) 35.4 Laboratory Tests Past 24 Hrs 01/25/19 01/25/19 07:00 07:00 WBC 16.2 H RBC 4.72 Hgb 13.2 Hct 40.1 MCV 85.0 MCH 28.0 MCHC 32.9 RDW Std Deviation 40.0 RDW Coeff of Jose 12.9 Plt Count 196 MPV 11.1 Immature Gran % (Auto) 0.900 Neut % (Auto) 81.5 H Lymph % (Auto) 9.0 L Mathews % (Auto) 7.3 Eos % (Auto) 0.9 Baso % (Auto) 0.4 Absolute Neuts (auto) 13.2 H Absolute Lymphs (auto) 1.45 Nucleated RBC % 0 Blood Type A POSITIVE Antibody Screen NEGATIVE Medical Necessity - Tobacco Use Smoking Status: Never smoker Assessment/Plan All Active Problems (Last Updated 01/26/19 @ 08:41 by Yadi Carmen CNM) Bilateral pleural effusion (Resolved) CAP (community acquired pneumonia) (Resolved) Assessment:23 yo at 40w4d gestation by 21w4d US Active vs. protracted labor, coping well Likely inadequate contraction pattern Cat 1 FHTs Plan: Continue IA per protocol RN to recheck cervix at 1400 and update CNM Will discuss AROM vs. Pitocin augmentation with patient at that time
--- NOTE | 2019-01-25 15:24 | PN.OBGYN_ITS ---
Subjective: Feeling contractions approx every 10 minutes; minimal discomfort; bedside and supportive Objective: Sitting up rocking on ball, no apparent discomfort AVSS FHTs: 135 baseline with contractions, no decels per IA; 135 baseline, moderate variability, with accels, no decels, during and immediately after AROM per EFM UCs: Q 8-10 minutes per palpation - Physical Exam General: Alert, Oriented x3, Cooperative, No apparent distress HEENT: PERRLA, EOMI Oral: Moist Mucosa Neck: Supple Neurological: Cranial nerves II-XII grossly intact Psych/Mental Status: Normal Affect, Appropriate, Alert and oriented to time, place, person, mood and affect Weight: 187 lb 8 oz Body Mass Index (BMI) 35.4 Laboratory Tests Past 24 Hrs 01/25/19 01/25/19 07:00 07:00 WBC 16.2 H RBC 4.72 Hgb 13.2 Hct 40.1 MCV 85.0 MCH 28.0 MCHC 32.9 RDW Std Deviation 40.0 RDW Coeff of Jose 12.9 Plt Count 196 MPV 11.1 Immature Gran % (Auto) 0.900 Neut % (Auto) 81.5 H Lymph % (Auto) 9.0 L [place] % (Auto) 7.3 Eos % (Auto) 0.9 Baso % (Auto) 0.4 Absolute Neuts (auto) 13.2 H Absolute Lymphs (auto) 1.45 Nucleated RBC % 0 Blood Type A POSITIVE Antibody Screen NEGATIVE Medical Necessity - Tobacco Use Smoking Status: Never smoker Assessment/Plan All Active Problems (Last Updated 09/30/17 @ 06:55 by Drake Mota MD) Bilateral pleural effusion (Resolved) CAP (community acquired pneumonia) (Resolved) Asssessmnt: 23 yo at 40w4d gestation by 21w4d US Active labor, copoing well Inadequate contraction pattern Cat 1 FHTs Plan: AROM for moderate amount clear fluid at 1520 Continuos EFM for at least 20 minutes with reactive NST then may return to Intermittent Auscultation Expectant management Anticipate vaginal
[2019-01-25] MEDS: Oxytocin 30 units/NS 500 ml 30 UNITS/500 ML IV.SOLN 334 UNITS IV (16:37)
--- NOTE | 2019-01-25 17:03 | PCM.OPRPT ---
Vaginal Delivery Active labor Amniotic Membrane Rupture Type: Artificial Rupture of Membrane time: 1520 Amniotic Fluid Description: Clear Final ARIANA: 01/21/19 Final ARIANA Source: US >20 weeks Gestational age: 40 Weeks and 6 Days Date of Procedure: 01/25/19 Pre-Operative Diagnosis: Active labor with AROM augmention Surgery/ Procedure Performed: Spontaneous Vaginal Delivery Type of Anesthesia: None Description of Procedure: CTSP when she was c/c/+3 with overwhelming UTP; she delivered a vigorous female infant over an intact perineum, OA to SANCHEZ: shoulders followed easily with maternal effort; infant placed on mother's abdomen, dried, stimulated,APGARs 9/9; cord clamped x 2 and cut by FOB; placenta delivered spontaneously, Mary mechanism, intact, 3-vessel cord, central insertion; inspection of perineum revealed intact perineum; EBL 250ml Raytec and instrument count correct x 2 with RN Presentation: Vertex, SANCHEZ Placental Delivery Description: Spontaneous Placenta Disposition: [facility] Cord Vessel Description: 3 Vessels Cord Entanglement: None Estimated Blood Loss: 250 Infant A gender: Female (1 minute): 9 (5 minute): 9 Episiotomy Description: None Laceration: None Medications given after delivery: IV Pitocin
--- NOTE | 2019-01-25 17:13 | DCINST_ITS ---
Discharge Diet: No Restrictions Discharge Activity: Return to Normal Activity, May Drive, May Shower, May Take a Tub Bath Return to work on:: 03/08/19 May resume sexual activity in: 6-8 weeks Weight Bearing Status: Weight bearing as tolerated Lifting Restrictions: Nothing heavier than the baby for two weeks Additional Activity Instructions:: No cleaning, cooking, or shopping for two weeks; no long car drives or rides for two weeks Additional Instructions: If you experience any of the following, contact your healthcare provider. * Bleeding that soaks a pad every hour for 2 hours * Fever 100.4 or higher * Unrelieved incision or abdominal pain * Swelling, redness, discharge or bleeding from your incision or episiotomy site * Your incision begins to separate * Problems urinating (including inability to urinate or burning while urinating). * Visual changes * Severe headache * Flu-like symptoms * Pain or redness in one of both of your breasts * Pain, warmth, tenderness or swelling in your legs, especially the calf area * Frequent nausea and vomiting * Symptoms of depression or anxiety If you experience any of the following, call 911 or go to the nearest Emergency Room. * Chest pain * Problems breathing * Seizure activity * Partial or complete paralysis of a body part, slurred speech, weakness or drooping of the face, or a sudden inability to walk or hold your balance Allergies/Adverse Reactions: Allergies No Known Allergies Allergy (Verified 01/25/19 07:08) Medications to take at Discharge Vit No.130/Iron/Folic [ Tablet] 1 tab PO DAILY 01/25/19 Acetaminophen [Tylenol] 1,000 mg PO Q8H PRN PRN tablet 01/27/19 Dibucaine 1 applic TOPICAL TID PRN PRN tube 01/27/19 Hydrocortisone 2.5% Crm [Hytone] 1 applic TOPICAL TID PRN PRN tube 01/27/19 Ibuprofen [Motrin] 600 mg PO Q6H PRN PRN #30 tab 01/27/19 The following prescriptions were given: Ibuprofen [Motrin] 600 mg PO Q6H PRN PRN #30 tab PRN Reason: Pain Score 1-3/10 Transmission Status: Pending to [id number] Please Follow Up With: Yadi Carmen CNM When: 6 weeks for checkup Primary Care Physician: Care Physician,No Primary [Primary Care Provider] - Test Results: Test results from this visit will be discussed in further detail at your follow- up appointment, if applicable. Proposed Discharge Date: 01/27/19
[2019-01-25] MEDS: Ibuprofen 600 MG Tablet PO (18:30)
[2019-01-25 19:40] VITALS: BP 122/65; PULSE 87; RESP 18; TEMP 36.9
[2019-01-25] MEDS: Acetaminophen 500 MG Tablet 1000 MG PO (21:53)
[2019-01-25 23:30] VITALS: BP 107/61; PULSE 67; RESP 16; TEMP 36.8
[2019-01-26] MEDS: Ibuprofen 600 MG Tablet PO ×3 (02:03→22:09)
[2019-01-26 04:10] VITALS: BP 99/51; PULSE 81; RESP 16; TEMP 36.4
[2019-01-26 04:36] LABS: Hematocrit 35.5 % (37-47); Hemoglobin 11.7 g/dL (12.0-15.0); Mean Corpuscular Hgb 27.9 pg (27.0-32.0); Mean Corpuscular Volume 84.7 fL (81-99); Mean Platelet Vol. 11.3 fl (6.2-12.0); Platelet Count 174 K/mm3 (150-450); RBC Distribution Width CV 13.2 % (11.6-14.6); RBC Distribution Width SD 40.6 fl (35.1-43.9); Red Blood Count 4.19 M/mm3 (4.2-5.4); White Blood Count 16.7 K/mm3 (4.4-11.0)
[2019-01-26] MEDS: Acetaminophen 500 MG Tablet 1000 MG PO ×2 (07:11→16:00)
--- NOTE | 2019-01-26 08:31 | PCM.PN.OB ---
Subjective: Feeling well, passing flatus, nursing well; does report painful uterine cramping, moderately well controlled by Ibuprofen Objective: AVSS Breasts soft, filling, nipples atraumatic Fundus firm, midline, u/1, lochia scant - Physical Exam General: Alert, Oriented x3, Cooperative, No apparent distress HEENT: PERRLA, EOMI Oral: Moist Mucosa Neck: Supple Lungs: Clear to auscultation, Normal air movement Cardiovascular: Regular rate, Regular Rhythm Vital Signs Temp Pulse Resp BP 97.5 F L 81 16 99/51 L 01/26/19 04:10 01/26/19 04:10 01/26/19 04:10 01/26/19 04:10 Oxygen Delivery Method Room Air Weight: 187 lb 8 oz Body Mass Index (BMI) 35.4 Intake and Output for Last 24 Hours 01/24/19 01/25/19 01/26/19 23:59 23:59 23:59 Intake Total 495.43 / 495.43 Output Total 500 / 500 Balance -4.57 / -4.57 Laboratory Tests Past 24 Hrs 01/26/19 04:20 WBC 16.7 H RBC 4.19 L Hgb 11.7 L Hct 35.5 L MCV 84.7 MCH 27.9 MCHC 33.0 RDW Std Deviation 40.6 RDW Coeff of Jose 13.2 Plt Count 174 MPV 11.3 Medical Necessity - Tobacco Use Smoking Status: Never smoker Assessment/Plan All Active Problems (Last Updated 09/30/17 @ 06:55 by Drake Mota MD) Bilateral pleural effusion (Resolved) CAP (community acquired pneumonia) (Resolved) Assessment: 23 yo at 40w4d gestation by 21w4d US PP Day #1 Normal involution, normal PP course Plan: Continue routine care
[2019-01-26 09:15] VITALS: BP 98/49; PULSE 77; RESP 14; TEMP 36.4
[2019-01-26 11:43] VITALS: BP 101/50; PULSE 60; RESP 12; TEMP 36.2
[2019-01-26 15:58] VITALS: BP 110/63; PULSE 82; RESP 12; TEMP 36.8
[2019-01-26 20:30] VITALS: BP 105/51; PULSE 78; RESP 16; TEMP 36.4
[2019-01-27 02:30] VITALS: BP 114/63; PULSE 74; RESP 16; TEMP 36.9
[2019-01-27] MEDS: Ibuprofen 600 MG Tablet PO (05:43)
--- NOTE | 2019-01-27 08:53 | PCM.PN.OB ---
Subjective: AVSS Feeling well, tolerating diet, passing gas, has had a bowel movement, pain well controlled with Ibuprofen. Infant nursing well; Desires discharge home this morning Objective: AVSS Breasts filling, nipples mildly irritated Fundus firm, midline, u /1-2, lochia scant - Physical Exam General: Alert, Oriented x3, Cooperative, No apparent distress HEENT: PERRLA, EOMI Oral: Moist Mucosa Neck: Supple Lungs: Clear to auscultation, Normal air movement Cardiovascular: Regular rate Abdomen: Bowel Sounds Present, Soft, Non Tender, Non-Distended, Passing Flatus Extremities: Capillary Refill Less than 3 Seconds, No Calf Tenderness Musculoskeletal: No Tenderness to Palpation of Joints or Extremities Neurological: Cranial nerves II-XII grossly intact, Deep Tendon Reflexes 2+/4 and Symmetrical, Neuro grossly intact Psych/Mental Status: Normal Affect, Appropriate, Alert and oriented to time, place, person, mood and affect Vital Signs Temp Pulse Resp BP 98.4 F 74 16 114/63 01/27/19 02:30 01/27/19 02:30 01/27/19 02:30 01/27/19 02:30 Oxygen Delivery Method Room Air Weight: 187 lb 8 oz Body Mass Index (BMI) 35.4 Intake and Output for Last 24 Hours 01/25/19 01/26/19 01/27/19 23:59 23:59 23:59 Intake Total 495.43 / 495.43 Output Total 500 / 500 Balance -4.57 / -4.57 Medical Necessity - Tobacco Use Smoking Status: Never smoker Assessment/Plan All Active Problems (Last Updated 01/26/19 @ 08:41 by Yadi Carmen CNM) Bilateral pleural effusion (Resolved) CAP (community acquired pneumonia) (Resolved) Assessment: 23 yo at 40w4d gestation by 21w4d US PP Day #2 Normal involution, normal PP course Plan: Discharge instructions discussed Discharge home today RTO 6 weeks or PRN
[2019-01-27 09:00] VITALS: BP 118/64; PULSE 64; RESP 16; TEMP 36.4
[2019-01-27] MEDS: Dibucaine 30 GM Tube 1 APPLIC TOPICAL (10:54)
== END 2019-01-27 11:15 | disposition home or self-care (01) | DRG 807 ==
PROVIDERS: Obstetrics & Gynecology; Admitting Provider Advanced Practice Midwife; Referring Provider Advanced Practice Midwife; Visit Provider Advanced Practice Midwife
DX: O80 Encounter for full-term uncomplicated delivery (principal); Z37.0 Single live birth; Z3A.40 40 weeks gestation of pregnancy
CPT/HCPCS: 59050; 85025; 85027; 86850; 86900; 86901; 99218; A4216; G0378

== ENCOUNTER → 2020-12-28 11:31 | Outpatient (CLI) | payer OTHER, BC, SELFPAY ==
[2020-12-28 11:54] LABS: Absolute Lymphocyte Count 1.35 X10^3/uL (0.83-4.51); Absolute Neutrophil Count 9.8 X10^3/uL (2.0-7.7); Basophil# 0.04 X10^3/uL; Basophil% 0.3 % (0-1); Eosinophil# 0.08 X10^3/uL; Eosinophils% 0.7 % (0-5); Hematocrit 40.2 % (37-47); Hemoglobin 13.8 g/dL (12.0-15.0); Lymphocyte # 1.35 X10^3/ul (0.83-4.51); Lymphocyte % 11.3 % (19-41); Mean Corp Hgb Conc 34.3 g/dL (32-36); Mean Corpuscular Hgb 29.6 pg (27.0-32.0); Mean Corpuscular Volume 86.1 fL (81-99); Mean Platelet Vol. 9.8 fl (6.2-12.0); Monocyte# 0.62 X10^3/uL; Monocyte% 5.2 % (0-10); NRBC Flagged by Analyzer 0 % (0-5); Neutrophil # 9.82 X10^3/uL (2.7-7.7); Neutrophil % 82.1 % (47-70); Platelet Count 284 K/mm3 (150-450); RBC Distribution Width CV 12.6 % (11.6-14.6); RBC Distribution Width SD 39.1 fl (35.1-43.9); Red Blood Count 4.67 M/mm3 (4.2-5.4)
[2020-12-28 13:07] LABS: HIV - WCH Non-Reactive (Nonreactive); Hepatitis B Surface Antigen Non-Reactive (Nonreactive); Hepatitis C Antibody Non-Reactive (Nonreactive); Rubella IgG Reactive (Nonreactive); Syphilis Antibodies Non-reactive
[2021-01-01 03:07] LABS: Chlamydia By Nucleic Acid AMP Negative (Negative)
[2021-01-01 14:03] LABS: Gonococcus By Nucleic Acid AMP Negative (Negative)
== END ==
PROVIDERS: Visit Provider Obstetrics & Gynecology
DX: Z34.82 Encounter for supervision of other normal pregnancy, second trimester (principal); Z11.3 Encounter for screening for infections with a predominantly sexual mode of transmission
CPT/HCPCS: 36415; 85025; 86703; 86762; 86780; 86803; 87086; 87088; 87340; 87491; 87591

== ENCOUNTER → 2021-03-21 15:10 | Outpatient (CLI) | payer OTHER, SELFPAY ==
[2021-03-21 17:30] LABS: Hematocrit 37.4 % (37-47); Hemoglobin 12.6 g/dL (12.0-15.0); Mean Corp Hgb Conc 33.7 g/dL (32-36); Mean Corpuscular Hgb 30.1 pg (27.0-32.0); Mean Corpuscular Volume 89.5 fL (81-99); Mean Platelet Vol. 10.5 fl (6.2-12.0); Platelet Count 202 K/mm3 (150-450); RBC Distribution Width CV 13.1 % (11.6-14.6); Red Blood Count 4.18 M/mm3 (4.2-5.4); White Blood Count 13.8 K/mm3 (4.4-11.0)
[2021-03-21 17:34] LABS: Glucose Challenge Gest 1H 50g 60 mg/dL (70-140)
== END ==
PROVIDERS: Visit Provider Obstetrics & Gynecology
DX: Z34.83 Encounter for supervision of other normal pregnancy, third trimester (principal)
CPT/HCPCS: 36415; 82950; 85027

== ENCOUNTER 2021-04-23 13:40 | Outpatient (CLI) | payer BC, OTHER, SELFPAY ==
[2021-04-23 14:03] VITALS: TEMP 36.5
[2021-04-23 14:04] VITALS: PULSE 91; O2SAT 96
[2021-04-23 14:09] VITALS: BMI 30.8
[2021-04-23 14:35] LABS: Color, Urine Yellow (Yellow); Glucose, Dipstick Normal (Normal); Ketone-Dipstick Negative (Negative); Leukocyte Esterase-Dipstick Negative /ul (Negative); Nitrite-Dipstick Negative (Negative); Occult Blood-Urine Negative /ul (Negative); Protein-Dipstick Negative (Negative); Urine Bilirubin Dipstick Negative (Negative); Urine Clarity Sl. Cloudy (Clear); Urine Urobilinogen Normal (Normal)
--- NOTE | 2021-04-23 19:00 | OB.TRI.NOTE ---
HPI - General HPI Narrative JOVANNA MERCADO, is a 26 F at 32 1/7wga who presents with c/o contractions. PFSH PFSH Medical History (Updated 04/24/21 @ 07:[address] Lydia Bolotn MD) Abdominal pain Acute CHF Acute myocarditis Bilateral pleural effusion CAP (community acquired pneumonia) Diastasis of rectus abdominis Parapneumonic effusion Pleuritic chest pain cardiomyopathy Psoriasis Psoriatic arthritis Home Medications acetaminophen 1,000 mg PO Q8H PRN PRN tab 01/27/19 [Rx Last Taken Unknown] hydrocortisone 1 applic TOPICAL TID PRN PRN tube 01/27/19 [Rx Last Taken Unknown] ibuprofen 600 mg PO Q6H PRN PRN #30 tab 01/27/19 [Rx Last Taken Unknown] [id number] [] tab PO 04/23/21 [History Last Taken Unknown] Allergy/AdvReac Type Severity Reaction Status Date / Time No Known Allergies Allergy Verified 03/21/19 08:47 Surgical History (Updated 03/21/19 @ 08:44 by Juliann Brandt) No history of previous surgery Social History (Updated 03/22/19 @ 11:[address] Leslie Taylor MD) Smoking Status: Never smoker second hand exposure: No alcohol intake: current alcohol intake frequency: a few times a month substance use type: does not use History Elective abortions Hx Para 1 Spontaneous abortions Hx # Term Pregnancies Ectopic pregnancies Hx # Pregnancies Multiple births # of living children NST FHR Rate Baby A Baseline: 140 Variability:: Moderate Accelerations:: 15 x 15 Decelerations:: None NST Reactive:: Yes FHR Category:: Category I Uterine Activity:: /10, irritability Assessment & Plan (1) False labor before 37 completed weeks of gestation: QUALIFIERS: Trimester: third trimester Qualified Code(s): O47.03 - False labor before 37 completed weeks of gestation, third trimester PLAN: Cat I FHR U/A neg SVE closed/long/high per RN exam D/C home
== END 2021-04-23 23:59 | disposition home or self-care (01) ==
LOC: WPOUT 13:57 → WP 14:00
PROVIDERS: Referring Provider Obstetrics & Gynecology; Visit Provider Obstetrics & Gynecology
DX: O47.03 False labor before 37 completed weeks of gestation, third trimester (principal); L40.50 Arthropathic psoriasis, unspecified; Z3A.37 37 weeks gestation of pregnancy; O99.713 Diseases of the skin and subcutaneous tissue complicating pregnancy, third trimester
CPT/HCPCS: 59025; 59050; 81002; 99218; G0378

== ENCOUNTER 2021-05-23 14:47 | Outpatient (CLI) | payer BC, OTHER, SELFPAY | END 2021-05-23 23:59 | disposition home or self-care (01) | LOC: LABSPEC 14:50 | PROVIDERS: Visit Provider Obstetrics & Gynecology | DX: Z36.85 Encounter for antenatal screening for Streptococcus B (principal) | CPT/HCPCS: 87081 ==

== ENCOUNTER 2021-06-14 07:40 | Inpatient (IN) | payer BC, SELFPAY ==
[2021-06-13 21:53] VITALS: PULSE 86; O2SAT 97
[2021-06-13 21:54] VITALS: BP 118/59; PULSE 80; TEMP 36.4
[2021-06-13 22:26] VITALS: BMI 33.7
[2021-06-14] VITALS (18 sets, daily range): BP systolic 94–151; BP diastolic 55–69; PULSE 46–94; RESP 16–18; TEMP 36.2–36.9; O2SAT 96–99
[2021-06-14] MEDS: Lactated Ringers 1,000 ML 200 ML IV (08:05)
[2021-06-14 08:36] LABS: Absolute Lymphocyte Count 1.75 X10^3/uL (0.83-4.51); Absolute Neutrophil Count 13.3 X10^3/uL (2.0-7.7); Basophil# 0.08 X10^3/uL; Basophil% 0.5 % (0-1); Eosinophil# 0.14 X10^3/uL; Eosinophils% 0.8 % (0-5); Hematocrit 35.8 % (37-47); Hemoglobin 12.3 g/dL (12.0-15.0); Lymphocyte # 1.75 X10^3/ul (0.83-4.51); Lymphocyte % 10.5 % (19-41); Mean Corp Hgb Conc 34.4 g/dL (32-36); Mean Corpuscular Hgb 29.4 pg (27.0-32.0); Mean Corpuscular Volume 85.6 fL (81-99); Monocyte# 1.17 X10^3/uL; NRBC Flagged by Analyzer 0 % (0-5); Neutrophil # 13.32 X10^3/uL (2.7-7.7); Neutrophil % 80.3 % (47-70); Platelet Count 178 K/mm3 (150-450); RBC Distribution Width CV 12.9 % (11.6-14.6); RBC Distribution Width SD 39.9 fl (35.1-43.9); Red Blood Count 4.18 M/mm3 (4.2-5.4); White Blood Count 16.6 K/mm3 (4.4-11.0)
[2021-06-14] MEDS: Lactated Ringers 500 ML 999 ML IV (10:01)
--- NOTE | 2021-06-14 10:21 | PCM.HP.BLA ---
History and Physical Date of Admission: 06/13/21 DELAYED DOCUMENATION SECONDARY TO EMR ISSUES: Chief complaint: Contractions History of present illness: 26-year-old G3, P2 at 39 weeks and 3 days with ARIANA 06/17/2021 17-week ultrasound arrives with contractions. Denies headache, visual changes, chest pain, shortness of breath, nausea vomiting, right upper quadrant pain. Patient states good movement. Obstetric history: G1: 40-week female G2: 42-week female 01/25/2019 G3: Current Past medical history: None Past surgical history: None Medications: vitamin Allergies: No known drug allergies Social history: Denies smoking, alcohol use, drug use Family history: Denies history DVT or PE Review of systems: Besides above pertinent positives a full review of systems was performed and found to be negative Physical exam: Vitals: Blood pressure 105/59 pulse 87 temp 98.1 Fahrenheit General: Normal-appearing no acute distress HEENT: Normocephalic/atraumatic no cervical lymphadenopathy Cardiac/respiratory: No use of accessory muscles, nonlabored breathing Abdomen: Soft, nontender, gravid Cervical exam /-3, AROM clear fluid minimal Extremities: No peripheral edema normal peripheral pulses Psych: Normal affect normal demeanor nonpressured speech Labs: White blood cell count 16.6 hemoglobin 12.3 hematocrit 35.8% platelets 178 Assessment plan: 26-year-old at 39 weeks and 3 days arrived with contractions no cervical change but with overall reassuring heart tones with few variables monitored for prolonged period of time noted to have continued intermittent variable decelerations. Educated patient on these findings I discussed induction of labor at term, patient states understanding and wished to proceed. AROM for clear but minimal fluid. Will start Pitocin when category 1 tracing. Patient again evaluated with variable decelerations but overall moderate variability and accelerations. Patient now making cervical change, reassuring. Educated patient if cervical change stops within the next 1 to 2 hours and continued category 2 tracing will need primary section for distress. Patient state understanding. We will recheck cervix in 1 hour
[2021-06-14] MEDS: Ondansetron 4 MG/2 ML Vial IV (10:34)
[2021-06-14] MEDS: Amnioinfusion- 0.9% NS 1,000 ML IV.SOLN. INTRA-UTER (10:48)
[2021-06-14] MEDS: Oxytocin 30 units/NS 500 ml 30 UNITS/500 ML IV.SOLN 334 UNITS IV (11:26)
--- NOTE | 2021-06-14 11:33 | EX.PCM.OBRPT ---
Maternal Data Information Final ARIANA: 06/17/21 Vaginal Delivery Maternal Presentation Maternal Presentation: Medically Indicated Induction Operative Information Date of Procedure: 06/14/21 Pre-Operative Diagnosis: Fuentes intrauterine Post-Operative Diagnosis: Fuentes intrauterine , Meconium fluid Surgery / Procedure Performed: Spontaneous Vaginal Delivery Type of Anesthesia: None Estimated Blood Loss: 350cc Findings Description of Procedure: Spontaneous vaginal delivery viable female. No nuchal cord. Baby to mom. Cord clamped and cut. Spontaneous delivery of placenta. No lacerations. Infant A Gender: Female (1 minute): 8 (5 minute): 9
[2021-06-14] MEDS: Ibuprofen 600 MG Tablet PO ×2 (11:43→18:25)
[2021-06-14] MEDS: 0.9% Saline Lock 10 ML Syringe IV (13:57)
[2021-06-14] MEDS: Acetaminophen 500 MG Tablet 1000 MG PO (19:58)
[2021-06-14] MEDS: Ondansetron ODT 4 MG Tablet PO (20:33)
[2021-06-15 00:50] VITALS: BP 97/58; PULSE 66; RESP 16; TEMP 36.8
[2021-06-15] MEDS: Ibuprofen 600 MG Tablet PO ×3 (01:02→13:08)
[2021-06-15] MEDS: Acetaminophen 500 MG Tablet 1000 MG PO ×3 (02:04→15:00)
[2021-06-15] MEDS: Ondansetron ODT 4 MG Tablet PO (03:48)
[2021-06-15 04:15] VITALS: BP 94/61; PULSE 61; RESP 16; TEMP 36.8
[2021-06-15 07:30] VITALS: BP 95/55; PULSE 62; RESP 16; TEMP 36.5; O2SAT 97
--- NOTE | 2021-06-15 08:53 | PCM.DC ---
Discharge Instructions Diet Discharge Diet: No restrictions Activity Discharge Activity: Return to Normal Activity, May Drive and May Shower May resume sexual activity in: 4-6 weeks Weight Bearing Status: Weight bearing as tolerated Dressing / Incision Call your doctor if your incision/area has: Continuous Slow Oozing and Foul Smelling Discharge Call your doctor if you observe: Fever of 101 or Higher, Shortness of breath and Chest pain Follow Up Care Please Follow Up With: Devan Melgar MD When: 2 weeks telehealth, 4 to 6 weeks Test Results: Test results from this visit will be discussed in further detail at your follow-up appointment, if applicable. Discharge Plan Admission Admit Date/Time: 06/14/21 07:40 Attending Provider: Mable Melgar Primary Care Provider: Care Physician,No Primary Consulting Providers: Devan Melgar Discharge Orders/Prescriptions Prescriptions: No Action 1 mg Tablet 1 tab PO DAILY RF: 0 Referrals / Follow Up: Care Physician,No Primary [Primary Care Provider] - Disposition Discharge Orders: Discharge Patient (Routine); Ordered 06/15/21 Ordered By: Dr. Devan Melgar
--- NOTE | 2021-06-15 08:53 | PCM.PN.OB ---
Subjective Subjective No overnight complaints Objective Data Objective Data Vital Signs: Vital Signs Temp Pulse Resp BP Pulse Ox 97.7 F L 62 16 95/55 L 97 06/15/21 07:30 06/15/21 07:30 06/15/21 07:30 06/15/21 07:30 06/15/21 07:30 Oxygen Delivery Method Room Air Weight: 178 lb 12.8 oz Body Mass Index (BMI) 33.7 Intake & Output: Intake and Output for Last 24 Hours 06/13/21 06/14/21 06/15/21 23:59 23:59 23:59 Intake Total 1566.67 / 1566.67 Output Total 200 / 200 Balance 1366.67 / 1366.67 Lab / Micro Data Result Diagrams: 06/14/21 08:05 Labs: Laboratory Results - last 24 hr 06/14/21 08:05: Blood Type A POSITIVE, Antibody Screen NEGATIVE Micro: Microbiology 06/14/21 08:20 Nasal Secretion SARS-CoV-2 Antigen (Rapid) - Final Physical Exam Const alert, oriented x3, no apparent distress, average body habitus, healthy appearing and well nourished HEENT normocephalic and moist oral mucous membranes Head and Scalp: atraumatic Face and Sinus: normal facial exam Eyes PERRL Neck full ROM Resp normal respiratory effort, no retractions and no use of accessory muscles GI GI Narrative: Soft, nontender, uterus firm and below umbilicus Extremity normal to inspection, full ROM and no clubbing, cyanosis or edema Psych mental status grossly normal, affect normal, speech normal and activity/motor behavior normal Assessment & Plan (1) Vaginal delivery: PLAN: day 1. Breast-feeding. Okay to discharge home if okay with global risk management director
[2021-06-15 12:21] VITALS: BP 107/55; PULSE 77; RESP 16; TEMP 36.7; O2SAT 97
[2021-06-15 17:23] VITALS: BP 113/58; PULSE 75; RESP 16; TEMP 36.7; O2SAT 100
== END 2021-06-15 18:05 | disposition home or self-care (01) | DRG 807 ==
LOC: WPOUT 07:43 → WP 07:43
PROVIDERS: Obstetrics & Gynecology; Admitting Provider Student in an Organized Health Care Education/Training Program; Referring Provider Student in an Organized Health Care Education/Training Program; Visit Provider Student in an Organized Health Care Education/Training Program
DX: O76 Abnormality in fetal heart rate and rhythm complicating labor and delivery (principal); Z37.0 Single live birth; O77.0 Labor and delivery complicated by meconium in amniotic fluid; Z3A.39 39 weeks gestation of pregnancy
CPT/HCPCS: 59025; 59050; 76815; 85025; 86850; 86900; 86901; 87426; 99218; J7030; J7120; A4216; G0378; J2405

== ENCOUNTER 2021-06-24 15:31 | Outpatient (CLI) | payer BC, SELFPAY ==
--- NOTE | 2021-06-24 15:35 | VDLE_ITS ---
Reason For Study: Pain RIGHT GSV is normal. CFV is compressible, spontaneous, phasic, competent and demonstrates normal augmentation. FV is compressible, spontaneous, phasic, competent and demonstrates normal augmentation. POP V is compressible, spontaneous, phasic, competent and demonstrates normal augmentation. T/P Trunk is compressible. PTV is compressible. RT PerV is compressible. Acute deep vein thrombosis is noted in the right GastrocV. Procedure This is a venous duplex using B-mode, color flow and spectral Doppler. Exam performed in department. A preliminary report was called and/or faxed to Dr. Melgar. VL/Venous Duplex US, Unilateral Interpretation Summary Acute deep venous thrombosis right gastrocnemius veins. No evidence for proxima l progression. Patent compressible right great saphenous vein Ordering Physician: Mable Melgar Performed By: Alberta Cadena RVT
== END 2021-06-24 23:59 | disposition home or self-care (01) ==
LOC: CVS 15:33
PROVIDERS: Referring Provider Student in an Organized Health Care Education/Training Program; Visit Provider Student in an Organized Health Care Education/Training Program
DX: O99.893 Other specified diseases and conditions complicating puerperium (principal); M79.609 Pain in unspecified limb
CPT/HCPCS: 93971

== ENCOUNTER 2021-07-26 14:39 | Outpatient (CLI) | payer BC, SELFPAY | END 2021-07-26 23:59 | disposition home or self-care (01) | PROVIDERS: Visit Provider Obstetrics & Gynecology | DX: N89.8 Other specified noninflammatory disorders of vagina (principal) ==

== ENCOUNTER → 2021-09-02 | Outpatient (CLI) | payer BC, SELFPAY ==
[2021-09-04 21:08] LABS: Chlamydia By Nucleic Acid AMP Negative (Negative)
[2021-09-04 21:44] LABS: Gonococcus By Nucleic Acid AMP Negative (Negative)
== END | disposition home or self-care (01) ==
LOC: LABSPEC 16:28
PROVIDERS: Visit Provider Obstetrics & Gynecology
DX: Z11.3 Encounter for screening for infections with a predominantly sexual mode of transmission (principal)
CPT/HCPCS: 87491; 87591

== ENCOUNTER → 2021-09-19 | Outpatient (CLI) | payer BC, SELFPAY ==
--- NOTE | 2021-09-19 09:14 | VDLE_ITS ---
Reason For Study: DVT RIGHT GSV is normal. CFV is compressible, spontaneous, phasic, competent and demonstrates normal augmentation. FV is compressible, spontaneous, phasic, competent and demonstrates normal augmentation. POP V is compressible, spontaneous, phasic, competent and demonstrates normal augmentation. T/P Trunk is compressible. PTV is compressible. RT PerV is compressible. Right Gastroc vein is partially compressible with bright intraluminal echoes consistent with Chronic DVT. Compared to 06/24/2021. Procedure This is a venous duplex using B-mode, color flow and spectral Doppler. Exam performed in department. A preliminary report was called and/or faxed to Yoav. VL/Venous Duplex US, Unilateral Interpretation Summary Chronic deep venous thrombosis right gastrocnemius vein. Patent and compressible right great saphenous vein Improvement noted since the previous examination of 06/24/2021 demonstrating an acute process at that time Ordering Physician: Mac Cason Performed By: Alberta Cadena RVT
== END | disposition home or self-care (01) ==
LOC: CVS 09:12
PROVIDERS: Referring Provider Internal Medicine Hematology & Oncology; Visit Provider Internal Medicine Hematology & Oncology
DX: I82.592 Chronic embolism and thrombosis of other specified deep vein of left lower extremity (principal)
CPT/HCPCS: 93971

== ENCOUNTER → 2022-04-18 | Outpatient (CLI) | payer BC, SELFPAY ==
[2022-04-24 21:51] LABS: HPV APTIMA, High Risk Negative (Negative)
== END | disposition home or self-care (01) ==
LOC: LABSPEC 14:30
PROVIDERS: Visit Provider Obstetrics & Gynecology
DX: Z12.4 Encounter for screening for malignant neoplasm of cervix (principal)
CPT/HCPCS: 87624; 88175; G0145

== ENCOUNTER → 2024-01-15 | Outpatient (CLI) | payer MEDICAID, SELFPAY ==
--- NOTE | 2024-01-15 14:58 | VDLE_ITS ---
Reason For Study: Left leg pain Procedure LEFT This is a venous duplex using B-mode, color GSV is normal. flow and spectral Doppler. CFV is compressible, spontaneous, phasic, Exam performed in department. competent, and demonstrates normal A preliminary report was called and/or faxed augmentation. to Dr. Kaiser. FV is compressible, spontaneous, phasic, competent and demonstrates normal augmentation. POP V is compressible, spontaneous, phasic, competent and demonstrates normal augmentation. T/P Trunk is compressible. PTV is compressible. LT PerV is compressible. VL/Venous Duplex US, Unilateral Interpretation Summary Deep veins of the left lower extremity are patent and compressible segmentally. There is no evidence of left lower extremity deep vein thrombosis. The left great saphenous vein lito ears patent and compressible segmentally. Ordering Physician: Eladio Kaiser Referring Physician: Eladio Kaiser Performed By: Alberta Cadena RVT
== END | disposition home or self-care (01) ==
PROVIDERS: PCP Family Medicine; Referring Provider Family Medicine; Visit Provider Family Medicine
DX: M79.605 Pain in left leg (principal); Z86.718 Personal history of other venous thrombosis and embolism
CPT/HCPCS: 93971

== ENCOUNTER → 2024-03-29 | Outpatient (CLI) | payer OTHER, MEDICAID, SELFPAY ==
[2024-03-29 17:51] LABS: Absolute Lymphocyte Count 2.17 X10^3/uL (0.83-4.51); Absolute Neutrophil Count 8.3 X10^3/uL (2.0-7.7); Basophil# 0.05 X10^3/uL; Basophil% 0.4 % (0-1); Eosinophil# 0.12 X10^3/uL; Hematocrit 43.6 % (37-47); Hemoglobin 14.1 g/dL (12.0-15.0); Lymphocyte # 2.17 X10^3/ul (0.83-4.51); Mean Corp Hgb Conc 32.3 g/dL (32-36); Mean Corpuscular Hgb 28.1 pg (27.0-32.0); Mean Platelet Vol. 10.6 fl (6.2-12.0); Monocyte# 0.74 X10^3/uL; Monocyte% 6.5 % (0-10); NRBC Flagged by Analyzer 0 % (0-5); Neutrophil # 8.32 X10^3/uL (2.7-7.7); Neutrophil % 72.8 % (47-70); Platelet Count 304 K/mm3 (150-450); RBC Distribution Width CV 12.3 % (11.6-14.6); RBC Distribution Width SD 39.5 fl (35.1-43.9); Red Blood Count 5.01 M/mm3 (4.2-5.4); White Blood Count 11.4 K/mm3 (4.4-11.0)
[2024-03-29 18:16] LABS: ALB/GLOB Ratio 1.1 RATIO (0.9-2.4); AST(SGOT) 18 U/L (15-37); Alanine Aminotransfer ALT/SGPT 33 U/L (13-56); Alkaline Phosphatase 61 U/L (45-117); Anion Gap 5 (5-15); BUN 19 mg/dL (7-18); BUN/Creat Ratio 22.1 RATIO (10-20); Calcium,Total 9.1 mg/dL (8.5-10.1); Chloride 105 mmol/L (98-107); Creatinine, Serum 0.86 mg/dL (0.55-1.02); EST Glomerular Filtration Rate 83 mL/min (>60); Est Glom Filt Rate - Afr Amer 101 mL/min (>60); Estradiol 84.7 pg/mL; Follicle Stimulating Hormone 4.1 mIU/mL; Globulin 3.8 g/dL (2.2-4.2); Glucose 101 mg/dL (74-106); Protein, Total 7.8 g/dL (6.4-8.2); Sodium Level 137 mmol/L (136-145); Thyroid Stim Hormone (TSH) 0.945 uIU/mL (0.358-3.740)
[2024-03-31 00:56] LABS: Vitamin D,25 Hydroxy 51.6 ng/mL
[2024-03-31 08:10] LABS: PROGESTERONE 8.9 ng/mL (.)
[2024-04-03 12:07] LABS: Sex Hormone-binding Globulin 49.8 nmol/L (24.6-122.0); Testosterone, Free 0.61 ng/dL (0.10-0.85); Testosterone, Total 21 ng/dL (13-71)
== END | disposition home or self-care (01) ==
LOC: BFHLAB 15:16
PROVIDERS: PCP Family Medicine; Visit Provider Family Medicine
DX: N94.3 Premenstrual tension syndrome (principal); R53.83 Other fatigue; E55.9 Vitamin D deficiency, unspecified
CPT/HCPCS: 36415; 80053; 82306; 82670; 83001; 84144; 84270; 84402; 84403; 84443; 85025